=== PATIENT | female | born 1970 | race Caucasian/White ===

== ENCOUNTER 2022-06-06 18:48 | Emergency (ER) | payer OTHER, SELFPAY ==
[2022-06-06 19:16] VITALS: BP 115/80; PULSE 80; RESP 20; TEMP 36.9; O2SAT 96; BMI 19.4
[2022-06-06 19:33] LABS: Appearance Urine Clear (Clear); Bilirubin Urine Negative (Negative); Blood Urine 3+ (Negative); Color Urine Yellow (Yellow); Glucose Urine Negative (Negative); Ketones Urine Negative (Negative); Leukocyte Esterase Urine 2+ (Negative); Nitrite Urine Negative (Negative); Protein Urine Negative (Negative); Specific Gravity Urine >= 1.030 (1.000-1.030); Urobilinogen Urine 0.2 (0.2-1.0)
[2022-06-06 19:55] LABS: RBC Urine 50-100 (0-2); Squamous Epithelial Cell Urine Moderate (None-Few); WBC Urine 25-50 (0-5)
--- NOTE | 2022-06-06 20:10 | ED_ITS ---
HPI - Female Genitourinary General Chief complaint: Urogenital Problems, Female Stated complaint: UTI Time Seen by Provider: 06/06/22 20:08 History of Present Illness HPI Narrative: The 2-year-old female comes in with dysuria symptoms that began today. It has pain with voiding urine. She has increased frequency. She states that in the past 6 months she has had 3 other urinary tract is in prior to this had not any for about 20 years. She states that she recently traveled in did not urinate is frequently which may have predisposed an infection. Related Data Previous Rx's Medication Instructions Recorded cephalexin 500 mg capsule 500 mg PO TID 10 days #30 caps 06/06/22 Review of Systems Status of ROS: Reports: 10 or more systems reviewed and unremarkable except as noted in History and below Narrative: Constitutional: No fevers, no weight gain or loss. Eyes: No discharge. No vision changes. HENT: No congestion, no sore throat, no ear pain. Cardiovascular: No chest pain, no palpitations. Respiratory: No shortness of breath, no wheezes, no cough. Gastrointestinal: No abdominal pain, no vomiting, no diarrhea. Genitourinary: Dysuria symptoms as described above. Musculoskeletal: Normal range of motion. Skin: No rashes, no pruritis. Neurological: No dizziness, weakness, sensory change, speech change. Endo/Heme/Allergies: No bruising or bleeding. No polydipsia. Pysch: no suicidality, no anxiety, no insomnia. All other systems reviewed and are negative. PFSH PFSH Social History Smoking Status: Never smoker Do you use any of these nicotine containing products: None Second hand tobacco smoke exposure: No How often do you have a drink containing alcohol: 2-3 times a week How many standard drinks containing alcohol do you have on a typical day: 1 or 2 How often do you have six or more drinks on one occasion: Never AUDIT-C Alcohol total score: 3 Non-prescribed substance use: denies use service: No Exam Narrative: Exam Narrative: Constitutional: Well-developed, well-nourished, no acute distress. HEENT: Normocephalic, atraumatic. Neck: Normal range of motion. Nontender. Supple. Heart: Intact distal pulses. Lungs: No chest discomfort. No wheezes, rhonchi, or rales. Abdomen: Tenderness in the lower abdomen. Back: Normal range of motion. Extremities: Normal range of motion. No injury. Skin: Intact. No rash. Warm. No erythema or pallor. Neurologic: No altered sensation. No weakness. Alert and oriented. Psychiatric: No suicidality. No anxiety or depression. No insomnia. Nursing notes and vitals signs are reviewed. Const: Vital Signs, click to edit/add: Vital Signs - 24 hr 06/06/22 19:16 Temperature 98.4 F Pulse Rate [Femora l] 80 Respiratory Rate 20 Blood Pressure [Le ft Upper Arm] 115/80 Pulse Oximetry 96 Oxygen Delivery Me thod Room Air Course Vital Signs Vital signs: Initial Vital Signs Temperature 98.4 F 06/06/22 19:16 Temperature Source Temporal Artery Scan 06/06/22 19:16 Pulse Rate 80 06/06/22 19:16 Pulse Rhythm 06/06/22 19:16 Respiratory Rate 20 06/06/22 19:16 Blood Pressure 115/80 06/06/22 19:16 Blood Pressure Mean 91 06/06/22 19:16 Blood Pressure Position Supine 06/06/22 19:16 Pulse Oximetry 96 06/06/22 19:16 Oxygen Delivery Method 06/06/22 19:16 Vital Signs Temperature 98.4 F 06/06/22 19:16 Pulse Rate 80 06/06/22 19:16 Respiratory Rate 20 06/06/22 19:16 Blood Pressure 115/80 06/06/22 19:16 Pulse Oximetry 96 06/06/22 19:16 Oxygen Delivery Method 06/06/22 19:16 Temperature 98.4 F 06/06/22 19:16 Pulse Rate 80 06/06/22 19:16 Respiratory Rate 20 06/06/22 19:16 Blood Pressure 115/80 06/06/22 19:16 Pulse Oximetry 96 06/06/22 19:16 Oxygen Delivery Method 06/06/22 19:16 MDM - Female Genitourinary MDM Narrative Medical decision making narrative: This patient comes in with dysuria symptoms and has a urinary tract infection. She received a tablet of peridium prescription for Keflex. I advised her to follow-up with her primary physician to consider prophylactic treatment for these recurrent infections recently. Lab Data Labs: Lab Results 06/06/22 Range/Units 19:14 Urine Color Yellow (Yellow) Urine Appearance Clear (Clear) Urine pH 5.0 (5.0-8.5) Ur Specific [place] >= 1.030 (1.000-1.030) Urine Protein Negative (Negative) Urine Glucose (UA) Negative (Negative) Urine Ketones Negative (Negative) Urine Blood 3+ A (Negative) Urine Nitrite Negative (Negative) Urine Bilirubin Negative (Negative) Urine Urobilinogen 0.2 (0.2-1.0) Ur Leukocyte Esterase 2+ A (Negative) Urine RBC 50-100 A (0-2) Urine WBC 25-50 A (0-5) Ur Squamous Epith Cells Moderate A (None-Few) Urine Bacteria None (None) Discharge Plan Discharge Clinical Impression: Urinary tract infection Patient Disposition: Home, Self-Care Condition: Stable Additional Instructions: Take medication as prescribed. Follow up with primary physician or return if wo rsening. Prescriptions: New cephalexin 500 mg capsule 500 mg PO TID 10 Days Qty: 30 0RF Follow Up/Referrals: Provider,Not a Local [Primary Care Provider] - Stand Alone Forms: [employer] Info Instructions
[2022-06-06] MEDS: PHENAZOPYRIDINE HCL 200 MG TABLET PO (20:16)
[2022-06-06 20:18] VITALS: BP 115/80; PULSE 80; RESP 20; TEMP 36.9
--- OUTSIDE RECORDS SUMMARY | 2022-06-06 20:46 | XMS_ITS | Continuity of Care Document ---
:1970 Author Organization [employer] [facility] [place] [address] Care Team Providers Name Role Phone Rad Santiago MD Primary Care Provider [phone] Encounters Date Type Specialty Care Team Description 05/29/2022 Travel 05/29/2022 Orders Only Lab, [facility] 05/22/2022 Travel 05/22/2022 Procedure Only Ayah Layton, IUD DO 2022 Telephone Ayah Layton Appointme nt DO 05/08/2022 Travel 05/08/2022 Office Visit Ayah Layton, ER Follow up ([facility]rg[facility] DO room- [facility]) 05/07/2022 Emergency MedRupali londono PA-C Urinary tract infection with hematuria, site unspecified (Primary Dx); Mass of right t high 04/22/2022 Travel 04/22/2022 Office Visit Marko Cunningham MBBS 01/31/2022 Patient Outreach Jaymie Casillas Medicati on Management Allied Health (CMR NO SHOW R /S) 01/15/2022 Pharmacist Medication Lili Casillas , Failed Appointment Management PharmD 01/01/2022 Refill Ryann Hogan Refill R equest MD (Albuterol Hfa) 10/04/2021 Travel 10/04/2021 Ancillary Procedure 10/01/2021 Travel 09/18/2021 Refill Angie Boss Refill R khris Candelario NP (Flovent Hfa) 09/13/2021 Refill Ina Santana Refill Gianna Restrepo DO (Levothyroxine) 08/30/2021 Refill Rad Santiago MD 08/30/2021 Office Visit Rad Santiago Physical (p andriy Chacko MD concern about e ye redness, using OTC drops (LUMIFY) concern what ca n be, since possible related to thyr oid.') 08/29/2021 Travel 07/18/2021 Travel 07/17/2021 Telephone [facility] 07/12/2021 Travel 07/12/2021 Nurse/Clinic Staff Only Immu nization/Injectio n (COVID-19 vac cine) 06/21/2021 Orders Only Kaye Andrade MD <No scans attached> 05/29/2021 Refill Ina Santana Refill Gianna Restrepo DO (Levothyroxine) 04/05/2021 Travel 04/05/2021 Office Visit Ina Santana Derm Problem (lindsey Restrepo DO on arms ) 02/21/2021 Travel 02/21/2021 Hospital Encounter Rad Santiago right Lee, MD 02/16/2021 Travel 02/12/2021 Travel 02/12/2021 Office Visit Rad Santiago MD 02/09/2021 Refill Angie Boss Refill R khris Candelario NP (Ventolin Hfa) 01/30/2021 Travel 01/30/2021 Office Visit Ryann Hogan Asthma ( refills) 01/24/2021 Travel 01/01/2021 Refill Angie Boss Refill R khris Candelario NP (Albuterol) 08/16/2020 Orders Only Angie Boss <No scan s attached> OKSANA Candelario 08/11/2020 Orders Only Lab, [facility] 08/10/2020 Travel 08/10/2020 Office Visit Angie Boss Asthma OKSANA Candelario 08/08/2020 Travel 07/17/2020 Refill Rad Santiago MD (flovent inhale r; ventolin inhale r) 07/14/2020 Telephone Sabine Preston MD 07/13/2020 Hospital Encounter Ina Santana Abnorma l mammogram Kaye, DO 06/30/2020 Travel 06/30/2020 Hospital Encounter Ina Santana Abnormtrish l mammogram Kaye, DO 06/23/2020 Travel 06/22/2020 Travel 06/19/2020 Hospital Encounter Breast ca ncer screening by mammogram 06/13/2020 Travel 06/13/2020 Office Visit Teodoro Cool, Consult (right upper MD arm mass) 06/02/2020 Travel 06/02/2020 Office Visit Latha Romero Consult (Mary Albert MD uterine bleedin g) 05/16/2020 Travel 05/16/2020 Hospital Encounter Ina Santana Menorrh agia with irregular cycle; Kaye, DO Arm mass, right 05/09/2020 Travel 05/09/2020 Office Visit Ina Santana Physical; Flu Shot Kaye, DO 04/28/2020 Travel 04/27/2020 Refill Rad Santiago MD (levothyroxine) 04/25/2020 Travel 03/24/2020 Travel 03/21/2020 Refill Rad Santiago MD (Albuterol Hfa) ; Physical (OV Du e with PCP); Asthma (O V Due with PCP) 12/17/[address] [facility]; Trmt PhD, LP Plan 12/03/[address] [facility]; Mental PhD, LP Health Intake 11/30/2019 Telephone David Melton, PhD, Appointm ent LP 11/30/2019 Telemedicine David Melton, PhD, Failed A ppointment LP 10/25/2019 Refill Rad Santiago MD (Ventolin Hfa) 10/17/2019 Refill Rad Santiago MD (Albuterol Hfa) 07/05/2019 Orders Only Lab, [facility] 06/28/2019 Refill Rad Santiago MD (Flovent HFA ) 06/02/2019 Refill Rad Santiago MD (Levothyroxine) 06/02/2019 Orders Only Rad Santiago <No scans a ttached> MD [facility] 06/01/2019 Travel 06/01/2019 Orders Only Lab, [facility] 05/18/2019 Telephone Rad Santiago Lab (FYI) MD [facility] 05/17/2019 Telephone Rad Santiago Lab (TSH an d IFOB) MD [facility] 03/01/2019 Travel 03/01/2019 Office Visit Rad Santiago Physical; M edication MD [facility] Management 12/05/2017 Orders Only Scanner <No scans attac hed> 03/06/2006 Orders Only Ross Contreras, <No sca ns attached> 03/05/2006 Office Visit Ross Contreras, Vaginal Problem (vag MD lump) 07/20/2002 [facility] Office Visit Ross Contreras MD 07/13/2002 [facility] Office Visit Jai Kapadia MD 06/29/2002 [facility] Office Visit Jai Kapadia MD 06/14/2002 [facility] Office Visit Angie Hardin, 06/01/2002 [facility] Office Visit Ross Contreras MD 05/18/2002 [facility] Office Visit Jai Kapadia MD 04/20/2002 [facility] Office Visit Sonia Olson NP 04/01/2002 [facility] Office Visit Jai Kapadia MD 02/23/2002 [facility] Office Visit Jai Kapadia MD 01/14/2002 [facility] Office Visit Ross Contreras MD 01/14/2002 [facility] Office Visit Staff, Other Clinical 12/29/2001 [facility] Office Visit Sonia Olson NP 10/13/2000 [facility] Office Visit Edmar Klein MD 09/01/2000 [facility] Office Visit Linh Uribe NP 08/22/2000 [facility] Office Visit Jai Kapadia MD 08/14/2000 [facility] Office Visit Jai Kapadia MD 08/05/2000 [facility] Office Visit Edmar Klein MD 07/29/2000 [facility] Office Visit Edmar Klein MD 07/15/2000 [facility] Office Visit Taylor Keenan NP 06/27/2000 [facility] Office Visit Linh Uribe NP 05/30/2000 [facility] Office Visit Taylor Keenan NP 05/02/2000 [facility] Office Visit Linh Uribe NP 05/02/2000 [facility] Office Procedure Jai Kapadia MD 04/04/2000 [facility] Office Visit Jai Kapadia MD 03/05/2000 [facility] Office Procedure Edmar Klein MD 03/05/2000 [facility] Office Visit Edmar Klein MD 02/22/2000 [facility] Office Visit Taylor Keenan NP 02/22/2000 [facility] Office Procedure Jai Kapadia MD 02/18/2000 [facility] Office Visit Linh Uribe NP Allergies No known active allergies Medications Medication Sig Dispensed Refills Start Date End Date Status fluticasone (50 Inhale 1-2 1 Bottle 12 08/10/2020 Ac tive mcg per actuation) Sprays in the nasal solution nostril(s) (FLONASE)Indicatio once daily. ns: Sinus congestion levothyroxine Take 1 Tablet 90 Tablet 3 08/30/2021 A ctive (SYNTHROID) 112 (112 mcg) by mcg mouth once tabletIndications: daily. Hypothyroidism, unspecified type Flovent HFA 220 INHALE 2 PUFFS 36 g 0 09/20/2021 Active mcg/actuation BY MOUTH TWICE inhalerIndications DAILY : Mild persistent asthma without complication albuterol HFA Inhale 2 Puffs 18 g 3 01/03/2022 Active (PRO-AIR; by mouth every VENTOLIN; 4 hours if PROVENTIL) 90 needed (cough, mcg/actuation shortness of inhalerIndications breath, or : Mild persistent wheezing). asthma without complication Cranberry Extract Take by mouth. 0 Active 200 mg cap flaxseed oil 1,000 Take 1 Cap by 0 0 Discontinued mg cap mouth once 22 (*Patient states daily. no longer taking/Not on sending fa cility list) [id number]- Take by mouth. 0 08/30/202105/08 Discontinued FA-lutein (Centrum 22 ( *Patient states Silver Women) 8 mg n o longer iron-400 mcg-300 lizz ing/Not on mcg tab sending fa cility list) cefdinir (OMNICEF) Take 1 Capsule 14 Capsule 0 05/07/2022 10/0 4/20 300 mg (300 mg) by 22 capsuleIndications mouth two : Urinary tract times daily infection with for 7 days. hematuria, site unspecified Hospital, Clinic, or Other Ordered Dose Route Frequency Start Date End Date Status Facility Administered Medication levonorgestrel (MIRENA) 20 1 Device IU ONE TIME 05/22/2022 Ended mcg/24 hours (8 yrs) 52 mg intrauterine device (IUD) 1 DeviceIndications: Encounter for IUD insertion Active Problems Problem Noted Date Intramural uterine fibroid 06/02/2020 Endometrial polyp 06/02/2020 Abnormal uterine bleeding 06/02/2020 PMS (premenstrual syndrome) 06/02/2020 Hypothyroidism 06/02/2019 Mild persistent asthma without complication Immunizations Name Administration Dates Next Due COVID-19 vaccine (Moderna 10/05/2020, 09/07/2020 100mcg/0.5mL) PF, MDV COVID-19 vaccine (Moderna Booster 07/12/2021 50mcg/0.25mL) PF, MDV COVID-19 vaccine (Blogvio 05/08/2022 30mcg/0.3mL) 12YO+ BIVALENT BOOSTER PF, MDV Influenza Virus, Unspecified 05/19/2012, 08/01/2011 Influenza, IIV4 05/08/2022, 07/12/2021, 05/09/2020, 07/21/2018 Pneumococcal Conj 20-valent (Prevnar 05/08/2022 20) Pneumococcal Poly,23-Valent 07/13/2008 (Pneumovax) Td (Age >=7 Years) 05/08/2022, 08/11/1992 Td, Preservative Free (age >= 7 02/20/2006 Years) Tdap 05/19/2012 Zoster (Shingrix-RZV, recombinant) 12/04/2020, 08/10/2020 Family History Medical History Relation Name Comments Good Health Daughter Jett Oldest Asthma Father Cancer-colon Father Depression Father Diabetes Father Gout Father Hypertension Father Stroke Father Asthma Mother Good Health Sister Younger by 3 yea rs Good Health Son 1 Danial Second Good Health Son 2 Juan Diego Third Cancer-breast No Family History Cancer-ovarian No Family History Relation Name Status Comments Daughter Jett Alive Father Alive Mother Alive Sister Alive Son 1 Danial Alive Son 2 Juan Diego Alive Social History Smoking Status as of 06/06/2022 Tobacco Use Types Packs/Day Years Used Date Never Assessed Alcohol Habits Answer Date Recorded How often do you have a drink containing alcohol? 2-3 times a week 03/01/2019 How many drinks containing alcohol do you have on a 1 or 2 03/01/2019 typical day when you are drinking? How often do you have six or more drinks on one Never 03/01/2019 occasion? Comment: occasionally 01/30/2021 Sex Assigned at Date Recorded Female 03/24/2020 4:14 PM CDT COVID-19 Exposure Response Date Recorded In the last 10 days, have you been in contact with No / Unsu re 05/29/2022 4:40 PM CDT someone who was confirmed or suspected to have Coronavirus/COVID-19? Last Filed Vital Signs Vital Sign Reading Time Taken Comments Blood Pressure 143/86 05/22/2022 2:45 PM CDT Pulse 66 05/22/2022 2:45 PM CDT Temperature 36.9 ??C (98.4 ??F) 05/07/2022 2:27 PM CDT Respiratory Rate 14 05/08/2022 11:52 AM CDT Oxygen Saturation 100% 05/07/2022 2:27 PM CDT Inhaled Oxygen Concentration - - Weight 60.3 kg (133 lb) 05/22/2022 2:41 PM CDT Height 178.5 cm (5' 10.28) 08/30/2021 4:20 PM PROPERTY FIELD INSPECTOR Body Mass Index 18.93 08/30/2021 4:20 PM PROPERTY FIELD INSPECTOR Plan of Treatment Not on file Procedures Procedure Name Priority Date/Time Associated Diagnosis Comme nts URINE Routine 05/29/2022 4:47 Encounter for IUD Resu lts for this PM CDT insertion procedure are i n the results section. OH INSERTION Routine 05/22/2022 3:10 Encounter for IUD Results for this INTRAUTERINE DEVICE PM CDT insertion procedur e are in IUD the results section. URINE Routine 05/22/2022 2:41 Encounter for IUD Resu lts for this PM CDT insertion procedure are i n the results section. US LOWER EXTREMITY STAT 05/07/2022 3:24 Result s for this SOFT TISSUE RIGHT PM CDT procedure are in the results section. URINE CULTURE STAT 05/07/2022 3:06 Results for this PM CDT procedure are i n the results section. URINALYSIS STAT 05/07/2022 3:06 Results for this MICROSCOPIC PM CDT procedure are i n the results section. UA W/ SEDIMENT EXAM STAT 05/07/2022 3:06 Resul ts for this REFLEXED PER CRITERIA PM CDT proced ure are in the results section. WET PREP GENITAL STAT 05/07/2022 3:03 Results for this PM CDT procedure are i n the results section. GC CHLAMYDIA TRACH STAT 05/07/2022 3:03 Result s for this PCR EPPA PM CDT procedure are i n the results section. URINE CULTURE Add On 04/22/2022 4:51 Bacterial UTI Results fo r this PM CDT procedure are i n the results section. URINALYSIS STAT 04/22/2022 4:51 Urinary frequency Results for this MICROSCOPIC PM CDT procedure are i n the results section. UA W/ SEDIMENT EXAM STAT 04/22/2022 4:51 Urinary frequency Results for this REFLEXED PER CRITERIA PM CDT proced ure are in the results section. XR MAMMO JANIS BILAT Routine 10/04/2021 4:36 Visit for screenin g Results for this SCREEN IMPLANT PM PROPERTY FIELD INSPECTOR mammogram procedure are in the results section. TSH Routine 08/30/2021 5:19 Acquired Results for this PM PROPERTY FIELD INSPECTOR hypothyroidism procedure are in the results section. SCAN-COLONOSCOPY 06/21/2021 1:30 Results for this PM PROPERTY FIELD INSPECTOR procedure are i n the results section. CBC W PLT NO DIFF Routine 04/05/2021 10:51 Petechiae Result s for this AM CDT procedure are i n the results section. US BREAST UNILATERAL DARCI 02/21/2021 9:22 Breast mass, righ t Results for this RIGHT LIMITED AM CDT procedure are in the results section. XR MAMMO JANIS UNI DARCI 02/21/2021 9:01 Breast mass, right R esults for this DIAG IMPLANT RIGHT AM CDT procedure are in the results section. OCCULT BLOOD IFOBT Routine 08/11/2020 11:24 Screening for colo n Results for this STOOL AM PROPERTY FIELD INSPECTOR cancer procedure are i n the results section. XR MAMMO POST CLIP STAT 07/13/2020 10:48 Abnormal mammogram Results for this PLCMT BILAT AM PROPERTY FIELD INSPECTOR procedure are i n the results section. US BIOPSY BREAST STAT 07/13/2020 10:33 Abnormal mammogram R esults for this NEEDLE W TEODORO W GUIDE AM PROPERTY FIELD INSPECTOR proced ure are in LEFT the results section. US BIOPSY BREAST STAT 07/13/2020 10:31 Abnormal mammogram R esults for this NEEDLE W TEODORO W GUIDE AM PROPERTY FIELD INSPECTOR proced ure are in RIGHT the results section. PATH TISSUE EXAM Today 07/13/2020 9:50 Results for this AM PROPERTY FIELD INSPECTOR procedure are i n the results section. US BREAST BILATERAL Routine 06/30/2020 8:12 Abnormal mammogram Results for this LIMITED AM PROPERTY FIELD INSPECTOR procedure are i n the results section. XR MAMMO JANIS BILAT Routine 06/30/2020 7:52 Abnormal mammogram Results for this ADDL VIEWS IMPLANT AM PROPERTY FIELD INSPECTOR procedure are in the results section. XR MAMMO JANIS BILAT Routine 06/19/2020 3:14 Breast cancer Resu lts for this SCREEN IMPLANT PM PROPERTY FIELD INSPECTOR screening by mammogram pro cedure are in the results section. US UPPER EXTREMITY Routine 05/16/2020 4:04 Arm mass, right Res ults for this SOFT TISSUE RIGHT PM CDT procedure are in the results section. US PELVIS COMPLETE TA Routine 05/16/2020 4:04 Menorrhagia with Results for this AND TV PM CDT irregular cycle procedure ar e in the results section. TSH Routine 05/09/2020 4:27 Hypothyroidism, Results f or this PM CDT unspecified type procedure a re in the results section. CBC W PLT NO DIFF Routine 05/09/2020 4:27 Menorrhagia with Res ults for this PM CDT irregular cycle procedure ar e in the results section. HEMOGLOBIN A1C Routine 05/09/2020 4:27 Screening for diabetes Results for this SCREENING PM CDT mellitus procedure are i n the results section. LIPID PANEL Routine 05/09/2020 4:27 Screening for lipid Resul ts for this PM CDT disorders procedure are i n the results section. OCCULT BLOOD IFOBT Routine 07/03/2019 9:08 Screening for colon Results for this STOOL AM PROPERTY FIELD INSPECTOR cancer procedure are i n the results section. TSH Routine 06/01/2019 3:53 Hypothyroidism, Results f or this PM CDT unspecified type procedure a re in the results section. GLUCOSE, FASTING Routine 03/01/2019 5:09 Diabetes mellitus Res ults for this PM CDT screening procedure are i n the results section. LIPID PANEL W REFLEX Routine 03/01/2019 5:09 Lipid screening R esults for this MEASURED LDL PM CDT procedure are i n the results section. [employer] ANALYST THIN PREP PAP Routine 03/01/2019 4:55 Cervical cancer Resu lts for this SCREEN IMAGED PM CDT screening procedure are in the results section. HPV THIN PREP Routine 03/01/2019 4:55 Cervical cancer Results for this PM CDT screening procedure are i n the results section. SCAN-MAMMOGRAPHY 12/05/2017 12:00 Results for this REPORT AM CDT procedure are i n the results section. PATH TISSUE EXAM Timed 03/05/2006 9:53 Results for this AM CDT procedure are i n the results section. GLUCOSE QUALITATIVE Routine 07/20/2002 2:05 Resul ts for this URINE PM PROPERTY FIELD INSPECTOR procedure are i n the results section. PROTEIN QUALITATIVE Routine 07/20/2002 2:05 Resul ts for this URINE PM PROPERTY FIELD INSPECTOR procedure are i n the results section. GESTATIONAL AGE Routine 07/20/2002 2:05 Results f or this ESTIMATE PM PROPERTY FIELD INSPECTOR procedure are i n the results section. VAG RECTAL OB STREP Routine 07/13/2002 3:55 Resul ts for this CULT PM PROPERTY FIELD INSPECTOR procedure are i n the results section. GLUCOSE QUALITATIVE Routine 07/13/2002 1:12 Resul ts for this URINE PM PROPERTY FIELD INSPECTOR procedure are i n the results section. PROTEIN QUALITATIVE Routine 07/13/2002 1:12 Resul ts for this URINE PM PROPERTY FIELD INSPECTOR procedure are i n the results section. HEMOGLOBIN Routine 07/13/2002 1:12 Results for this PM PROPERTY FIELD INSPECTOR procedure are i n the results section. GESTATIONAL AGE Routine 07/13/2002 1:12 Results f or this ESTIMATE PM PROPERTY FIELD INSPECTOR procedure are i n the results section. GLUCOSE QUALITATIVE Routine 06/29/2002 10:09 Resu lts for this URINE AM PROPERTY FIELD INSPECTOR procedure are i n the results section. PROTEIN QUALITATIVE Routine 06/29/2002 10:09 Resu lts for this URINE AM PROPERTY FIELD INSPECTOR procedure are i n the results section. GESTATIONAL AGE Routine 06/29/2002 10:09 Results for this ESTIMATE AM PROPERTY FIELD INSPECTOR procedure are i n the results section. GLUCOSE QUALITATIVE Routine 06/14/2002 10:14 Resu lts for this URINE AM PROPERTY FIELD INSPECTOR procedure are i n the results section. PROTEIN QUALITATIVE Routine 06/14/2002 10:14 Resu lts for this URINE AM PROPERTY FIELD INSPECTOR procedure are i n the results section. GESTATIONAL AGE Routine 06/14/2002 10:14 Results for this ESTIMATE AM PROPERTY FIELD INSPECTOR procedure are i n the results section. GLUCOSE QUALITATIVE Routine 06/01/2002 9:42 Resul ts for this URINE AM CDT procedure are i n the results section. PROTEIN QUALITATIVE Routine 06/01/2002 9:42 Resul ts for this URINE AM CDT procedure are i n the results section. GESTATIONAL AGE Routine 06/01/2002 9:42 Results f or this ESTIMATE AM CDT procedure are i n the results section. GLUCOSE QUALITATIVE Routine 05/18/2002 10:02 Resu lts for this URINE AM CDT procedure are i n the results section. PROTEIN QUALITATIVE Routine 05/18/2002 10:02 Resu lts for this URINE AM CDT procedure are i n the results section. HEMOGLOBIN Routine 05/18/2002 10:02 Results for this AM CDT procedure are i n the results section. GLUCOSE BLOOD 1 HOUR Routine 05/18/2002 10:02 Res ults for this AFTER 50 GM ORAL AM CDT procedure a re in GLUCOSE the results section. GESTATIONAL AGE Routine 05/18/2002 10:02 Results for this ESTIMATE AM CDT procedure are i n the results section. GLUCOSE QUALITATIVE Routine 04/20/2002 10:27 Resu lts for this URINE AM CDT procedure are i n the results section. PROTEIN QUALITATIVE Routine 04/20/2002 10:27 Resu lts for this URINE AM CDT procedure are i n the results section. GESTATIONAL AGE Routine 04/20/2002 10:27 Results for this ESTIMATE AM CDT procedure are i n the results section. GLUCOSE QUALITATIVE Routine 04/01/2002 3:05 Resul ts for this URINE PM CDT procedure are i n the results section. PROTEIN QUALITATIVE Routine 04/01/2002 3:05 Resul ts for this URINE PM CDT procedure are i n the results section. GESTATIONAL AGE Routine 04/01/2002 3:05 Results f or this ESTIMATE PM CDT procedure are i n the results section. GLUCOSE QUALITATIVE Routine 02/23/2002 9:14 Resul ts for this URINE AM CDT procedure are i n the results section. TRIPLE MARKER SCREEN Routine 02/23/2002 9:14 Resu lts for this FOR DOWN SYNDROME AM CDT procedure are in MATERNAL SERUM the results section. PROTEIN QUALITATIVE Routine 02/23/2002 9:14 Resul ts for this URINE AM CDT procedure are i n the results section. GESTATIONAL AGE Routine 02/23/2002 9:14 Results f or this ESTIMATE AM CDT procedure are i n the results section. PROTEIN QUALITATIVE Routine 01/14/2002 1:46 Resul ts for this URINE PM CDT procedure are i n the results section. HEMOGLOBIN Routine 01/14/2002 1:46 Results for this PM CDT procedure are i n the results section. GLUCOSE QUALITATIVE Routine 01/14/2002 1:46 Resul ts for this URINE PM CDT procedure are i n the results section. GESTATIONAL AGE Routine 01/14/2002 1:46 Results f or this ESTIMATE PM CDT procedure are i n the results section. TRIPLE MARKER SCREEN Routine 01/14/2002 11:00 Res ults for this FOR DOWN SYNDROME AM CDT procedure are in MATERNAL SERUM the results section. GESTATIONAL AGE Routine 01/14/2002 11:00 Results for this ESTIMATE AM CDT procedure are i n the results section. NUTRITION EDUCATION Routine 01/14/2002 11:00 Resu lts for this AM CDT procedure are i n the results section. WHITE BLOOD COUNT Routine 12/29/2001 10:50 Result s for this AM CDT procedure are i n the results section. RBC SIZE DISTRIBUTION Routine 12/29/2001 10:50 Re sults for this AM CDT procedure are i n the results section. RED BLOOD COUNT Routine 12/29/2001 10:50 Results for this AM CDT procedure are i n the results section. SEGMENTED NEUTROPHILS Routine 12/29/2001 10:50 Re sults for this PERCENT OF BLOOD AM CDT procedur e are in LEUKOCYTES the results section. PLATELET COUNT Routine 12/29/2001 10:50 Results f or this AM CDT procedure are i n the results section. NEUTROPHIL COUNT Routine 12/29/2001 10:50 Results for this BLOOD MANUAL AM CDT procedure are i n the results section. MEAN PLATELET VOLUME Routine 12/29/2001 10:50 Res ults for this AM CDT procedure are i n the results section. MONOCYTE COUNT BLOOD Routine 12/29/2001 10:50 Res ults for this AUTOMATED AM CDT procedure are i n the results section. MONOCYTES PERCENT Routine 12/29/2001 10:50 Res ults for this OF BLOOD LEUKOCYTES AM CDT procedur e are in MANUAL COUNT the results section. MEAN CORPUSCULAR Routine 12/29/2001 10:50 Results for this VOLUME RBC AM CDT procedure are i n the results section. MEAN CORPUSCULAR Routine 12/29/2001 10:50 Results for this HEMOGLOBIN AM CDT procedure are i n CONCENTRATION RBC the result s section. MEAN CORPUSLE HGB Routine 12/29/2001 10:50 Result s for this COUNT AM CDT procedure are i n the results section. LYMPHOCYTE COUNT Routine 12/29/2001 10:50 Results for this BLOOD AM CDT procedure are i n the results section. LYMPHOCYTES Routine 12/29/2001 10:50 Results f or this PERCENT OF BLOOD AM CDT procedure a re in LEUKOCYTES MANUAL the result s COUNT section. HEMOGLOBIN Routine 12/29/2001 10:50 Results for this AM CDT procedure are i n the results section. HEMATOCRIT Routine 12/29/2001 10:50 Results for this AM CDT procedure are i n the results section. EOSINOPHILS Routine 12/29/2001 10:50 Results f or this PERCENT OF BLOOD AM CDT procedure a re in LEUKOCYTES the results section. EOSINOPHIL COUNT Routine 12/29/2001 10:50 Results for this BLOOD AM CDT procedure are i n the results section. BASOPHILS PERCENT Routine 12/29/2001 10:50 Res ults for this OF BLOOD LEUKOCYTES AM CDT procedur e are in the results section. BASOPHIL COUNT BLOOD Routine 12/29/2001 10:50 Res ults for this AM CDT procedure are i n the results section. HBSAG (HBS) Routine 12/29/2001 10:50 Results for this AM CDT procedure are i n the results section. GESTATIONAL AGE Routine 12/29/2001 10:43 Results for this ESTIMATE AM CDT procedure are i n the results section. HPV THIN PREP Routine 10/13/2000 1:08 Results for this PM PROPERTY FIELD INSPECTOR procedure are i n the results section. HEMOGLOBIN Routine 10/13/2000 10:03 Results for this AM PROPERTY FIELD INSPECTOR procedure are i n the results section. LEUKOCYTE ESTERASE Routine 09/01/2000 7:24 Result s for this URINE BY DIPSTICK AM PROPERTY FIELD INSPECTOR procedure are in the results section. PROTEIN QUALITATIVE Routine 09/01/2000 7:24 Resul ts for this URINE AM PROPERTY FIELD INSPECTOR procedure are i n the results section. GLUCOSE QUALITATIVE Routine 09/01/2000 7:24 Resul ts for this URINE AM PROPERTY FIELD INSPECTOR procedure are i n the results section. GESTATIONAL AGE Routine 09/01/2000 7:24 Results f or this ESTIMATE AM PROPERTY FIELD INSPECTOR procedure are i n the results section. LEUKOCYTE ESTERASE Routine 08/22/2000 4:07 Result s for this URINE BY DIPSTICK PM PROPERTY FIELD INSPECTOR procedure are in the results section. PROTEIN QUALITATIVE Routine 08/22/2000 4:07 Resul ts for this URINE PM PROPERTY FIELD INSPECTOR procedure are i n the results section. GLUCOSE QUALITATIVE Routine 08/22/2000 4:07 Resul ts for this URINE PM PROPERTY FIELD INSPECTOR procedure are i n the results section. GESTATIONAL AGE Routine 08/22/2000 4:07 Results f or this ESTIMATE PM PROPERTY FIELD INSPECTOR procedure are i n the results section. VAG RECTAL OB STREP Routine 08/14/2000 2:15 Resul ts for this CULT PM PROPERTY FIELD INSPECTOR procedure are i n the results section. LEUKOCYTE ESTERASE Routine 08/14/2000 1:55 Result s for this URINE BY DIPSTICK PM PROPERTY FIELD INSPECTOR procedure are in the results section. PROTEIN QUALITATIVE Routine 08/14/2000 1:55 Resul ts for this URINE PM PROPERTY FIELD INSPECTOR procedure are i n the results section. GLUCOSE QUALITATIVE Routine 08/14/2000 1:55 Resul ts for this URINE PM PROPERTY FIELD INSPECTOR procedure are i n the results section. GESTATIONAL AGE Routine 08/14/2000 1:55 Results f or this ESTIMATE PM PROPERTY FIELD INSPECTOR procedure are i n the results section. LEUKOCYTE ESTERASE Routine 08/05/2000 3:26 Result s for this URINE BY DIPSTICK PM PROPERTY FIELD INSPECTOR procedure are in the results section. PROTEIN QUALITATIVE Routine 08/05/2000 3:26 Resul ts for this URINE PM PROPERTY FIELD INSPECTOR procedure are i n the results section. GLUCOSE QUALITATIVE Routine 08/05/2000 3:26 Resul ts for this URINE PM PROPERTY FIELD INSPECTOR procedure are i n the results section. GESTATIONAL AGE Routine 08/05/2000 3:26 Results f or this ESTIMATE PM PROPERTY FIELD INSPECTOR procedure are i n the results section. LEUKOCYTE ESTERASE Routine 07/29/2000 9:01 Result s for this URINE BY DIPSTICK AM PROPERTY FIELD INSPECTOR procedure are in the results section. PROTEIN QUALITATIVE Routine 07/29/2000 9:01 Resul ts for this URINE AM PROPERTY FIELD INSPECTOR procedure are i n the results section. GLUCOSE QUALITATIVE Routine 07/29/2000 9:01 Resul ts for this URINE AM PROPERTY FIELD INSPECTOR procedure are i n the results section. GESTATIONAL AGE Routine 07/29/2000 9:01 Results f or this ESTIMATE AM PROPERTY FIELD INSPECTOR procedure are i n the results section. LEUKOCYTE ESTERASE Routine 07/15/2000 1:37 Result s for this URINE BY DIPSTICK PM PROPERTY FIELD INSPECTOR procedure are in the results section. PROTEIN QUALITATIVE Routine 07/15/2000 1:37 Resul ts for this URINE PM PROPERTY FIELD INSPECTOR procedure are i n the results section. GLUCOSE QUALITATIVE Routine 07/15/2000 1:37 Resul ts for this URINE PM PROPERTY FIELD INSPECTOR procedure are i n the results section. GESTATIONAL AGE Routine 07/15/2000 1:37 Results f or this ESTIMATE PM PROPERTY FIELD INSPECTOR procedure are i n the results section. LEUKOCYTE ESTERASE Routine 06/27/2000 3:50 Result s for this URINE BY DIPSTICK PM PROPERTY FIELD INSPECTOR procedure are in the results section. PROTEIN QUALITATIVE Routine 06/27/2000 3:50 Resul ts for this URINE PM PROPERTY FIELD INSPECTOR procedure are i n the results section. HEMOGLOBIN Routine 06/27/2000 3:50 Results for this PM PROPERTY FIELD INSPECTOR procedure are i n the results section. GLUCOSE BLOOD 1 HOUR Routine 06/27/2000 3:50 Resu lts for this AFTER 50 GM ORAL PM PROPERTY FIELD INSPECTOR procedure a re in GLUCOSE the results section. GLUCOSE QUALITATIVE Routine 06/27/2000 3:50 Resul ts for this URINE PM PROPERTY FIELD INSPECTOR procedure are i n the results section. GESTATIONAL AGE Routine 06/27/2000 3:50 Results f or this ESTIMATE PM PROPERTY FIELD INSPECTOR procedure are i n the results section. LEUKOCYTE ESTERASE Routine 05/30/2000 3:37 Result s for this URINE BY DIPSTICK PM CDT procedure are in the results section. PROTEIN QUALITATIVE Routine 05/30/2000 3:37 Resul ts for this URINE PM CDT procedure are i n the results section. GLUCOSE QUALITATIVE Routine 05/30/2000 3:37 Resul ts for this URINE PM CDT procedure are i n the results section. GESTATIONAL AGE Routine 05/30/2000 3:37 Results f or this ESTIMATE PM CDT procedure are i n the results section. LEUKOCYTE ESTERASE Routine 05/02/2000 2:24 Result s for this URINE BY DIPSTICK PM CDT procedure are in the results section. PROTEIN QUALITATIVE Routine 05/02/2000 2:24 Resul ts for this URINE PM CDT procedure are i n the results section. GLUCOSE QUALITATIVE Routine 05/02/2000 2:24 Resul ts for this URINE PM CDT procedure are i n the results section. GESTATIONAL AGE Routine 05/02/2000 2:24 Results f or this ESTIMATE PM CDT procedure are i n the results section. LEUKOCYTE ESTERASE Routine 04/04/2000 3:40 Result s for this URINE BY DIPSTICK PM CDT procedure are in the results section. PROTEIN QUALITATIVE Routine 04/04/2000 3:40 Resul ts for this URINE PM CDT procedure are i n the results section. HEMOGLOBIN Routine 04/04/2000 3:40 Results for this PM CDT procedure are i n the results section. GLUCOSE QUALITATIVE Routine 04/04/2000 3:40 Resul ts for this URINE PM CDT procedure are i n the results section. GESTATIONAL AGE Routine 04/04/2000 3:40 Results f or this ESTIMATE PM CDT procedure are i n the results section. LEUKOCYTE ESTERASE Routine 03/05/2000 3:36 Result s for this URINE BY DIPSTICK PM CDT procedure are in the results section. PROTEIN QUALITATIVE Routine 03/05/2000 3:36 Resul ts for this URINE PM CDT procedure are i n the results section. GLUCOSE QUALITATIVE Routine 03/05/2000 3:36 Resul ts for this URINE PM CDT procedure are i n the results section. GESTATIONAL AGE Routine 03/05/2000 3:36 Results f or this ESTIMATE PM CDT procedure are i n the results section. HPV THIN PREP Routine 03/05/2000 8:48 Results for this AM CDT procedure are i n the results section. NUTRITION EDUCATION Routine 02/22/2000 9:46 Resul ts for this AM CDT procedure are i n the results section. HBSAG (HBS) Routine 02/18/2000 8:00 Results for this AM CDT procedure are i n the results section. WHITE BLOOD COUNT Routine 02/18/2000 8:00 Results for this AM CDT procedure are i n the results section. RBC SIZE DISTRIBUTION Routine 02/18/2000 8:00 Res ults for this AM CDT procedure are i n the results section. RED BLOOD COUNT Routine 02/18/2000 8:00 Results f or this AM CDT procedure are i n the results section. SEGMENTED NEUTROPHILS Routine 02/18/2000 8:00 Res ults for this PERCENT OF BLOOD AM CDT procedur e are in LEUKOCYTES the results section. PLATELET COUNT Routine 02/18/2000 8:00 Results fo r this AM CDT procedure are i n the results section. NEUTROPHIL COUNT Routine 02/18/2000 8:00 Results for this BLOOD MANUAL AM CDT procedure are i n the results section. MEAN PLATELET VOLUME Routine 02/18/2000 8:00 Resu lts for this AM CDT procedure are i n the results section. MONOCYTE COUNT BLOOD Routine 02/18/2000 8:00 Resu lts for this AUTOMATED AM CDT procedure are i n the results section. MONOCYTES PERCENT Routine 02/18/2000 8:00 Resu lts for this OF BLOOD LEUKOCYTES AM CDT procedur e are in MANUAL COUNT the results section. MEAN CORPUSCULAR Routine 02/18/2000 8:00 Results for this VOLUME RBC AM CDT procedure are i n the results section. MEAN CORPUSCULAR Routine 02/18/2000 8:00 Results for this HEMOGLOBIN AM CDT procedure are i n CONCENTRATION RBC the result s section. MEAN CORPUSLE HGB Routine 02/18/2000 8:00 Results for this COUNT AM CDT procedure are i n the results section. LYMPHOCYTE COUNT Routine 02/18/2000 8:00 Results for this BLOOD AM CDT procedure are i n the results section. LYMPHOCYTES Routine 02/18/2000 8:00 Results fo r this PERCENT OF BLOOD AM CDT procedure a re in LEUKOCYTES MANUAL the result s COUNT section. HEMOGLOBIN Routine 02/18/2000 8:00 Results for this AM CDT procedure are i n the results section. HEMATOCRIT Routine 02/18/2000 8:00 Results for this AM CDT procedure are i n the results section. EOSINOPHILS Routine 02/18/2000 8:00 Results fo r this PERCENT OF BLOOD AM CDT procedure a re in LEUKOCYTES the results section. EOSINOPHIL COUNT Routine 02/18/2000 8:00 Results for this BLOOD AM CDT procedure are i n the results section. BASOPHILS PERCENT Routine 02/18/2000 8:00 Resu lts for this OF BLOOD LEUKOCYTES AM CDT procedur e are in the results section. BASOPHIL COUNT BLOOD Routine 02/18/2000 8:00 Resu lts for this AM CDT procedure are i n the results section. HPV THIN PREP Routine 04/09/1999 10:18 Results fo r this AM CDT procedure are i n the results section. HEMOGLOBIN Routine 04/09/1999 10:18 Results for this AM CDT procedure are i n the results section. Results URINE (05/29/2022 4:47 PM CDT)Only the most recent of2 resultswithin the time period is included. athologist Signature ,URIN Negative Negative [facility]20[facility] PM [facility]T [facility] Specimen Anatomical Collection Method Collection Time Receive d Time (Source) Location / / Volume Laterality Urine URINE SPECIMEN / Non-Blood / 05/29/2022 4:47 PM 05/29 4:47 Unknown Unknown CDT PM CDT Ayah Layton DO URINE Performing Organization Address City/State/ZIP Code [place]ian [place] [address] [place] INSERTION INTRAUTERINE DEVICE IUD (05/22/2022 3:10 PM CDT) Narrative Ayah Layton DO - 05/22/2022 3:10 PM CDT Ayah Layton DO ? 05/22/2022 ??3:14 PM IUD Insertion Date/Time: 05/22/2022 3:10 PM Performed by: Ayah Layton DO Authorized by: Ayah Layton DO Consent: ??Consent obtained: ??Verbal ??Consent given by: ??Patient ??Procedure risks and benefits discusse d: yes ?Patient questions answered: yes ?Patient agrees, verbalizes understand ing, and wants to proceed: yes ?Educational handouts given: yes ?Instructions and paperwork completed: yes ?? Procedure: ??Pelvic exam performed: yes ?Negative urine test: yes ?Cervix cleaned and prepped: yes ?Speculum placed in vagina: yes ?Tenaculum applied to cervix: yes ?Uterus sounded: yes ?Uterus sound depth (cm): ??9 ??IUD inserted with no complications: y es ?IUD type: ??Mirena ??Strings trimmed: yes ?? Post-procedure: ??Patient tolerated procedure well: yes ?Patient will follow up after next per iod: yes ?? Comments: ?? -- Reviewed risk of infection, bleed ing, pain, risk of tubal , perforation of uterus, migration of the IUD and possible loss of strings -- ??Patient is aware can have some spot ting or irregular bleeding with the IUD. ??Patient also aware that IUD is no t 100% effect so that is unlikely, but possible. ?? -- ??Mirena IUD to be removed in 5 years . ?? -- ??Patient may use NSAID for discomfor t. -- ??If pain or bleeding is present and worsening, patient needs to contact medical care. -- ??Patient counseled that IUD does not protect against STDs and if STD does occur, then IUD might need to be re moved. ?? -- ??Taught patient how to feel IUD stri ngs as spontaneous expulsion of IUD can occur. ??Return to care if unable to feel strings. -- ??Avoid putting anything in your vagi na for 1 week including tampons and having intercourse. Ayah Ann Calin DO PROCEDURE ORD US LOWER EXTREMITY SOFT TISSUE RIGHT (05/07/2022 3:24 PM CDT) Anatomical Region Laterality Modality LEG R Ultrasound Specimen (Source) Anatomical Collection Method Collection Time Re ceived Time Location / / Volume Laterality 05/07/2022 3:24 PM CDT Impressions 05/07/2022 3:40 PM CDT 1. ??Indeterminate medial thigh 6.5 cm intramuscular mass. MRI with contrast recommended for further evaluation. 2. ??Report discussed with Dr. Krueger at 3:40 PM Narrative 05/07/2022 3:40 PM CDT For Patients: As a result of the Cures Act, medical imaging exams and procedure reports are released immediately into your electronic medical record. You may view this report before your re ferring provider. If you have questions, please contact your health care provider. EXAM: US LOWER EXTREMITY SOFT TISSUE RIG HT LOCATION: [facility] DATE/TIME: 05/07/2022 3:24 PM INDICATION: Upper right thigh mobile sof t tissue mass, mildly tender, developed after active intercourse with new partner. ??Clinically suspect possible hematoma from muscle tear. Trauma 10 days ago. COMPARISON: None. TECHNIQUE: Routine. FINDINGS: The upper right medial thigh h as a 6.5 x 3.9 x 3.3 cm marginated intramuscular mass with blood flow. The history would suggest hematoma, however the internal blood flow is atypical for hematoma. Therefore a neoplasm is possible. Procedure Note Last Ackerman MD - 05/07/20 22 For Patients: As a result of the Cures Act, medical imaging exams and procedure reports are released immediately into your electronic medical record. You may view this report before your referring provider. If you have questions, please contact [facility] health care provider. EXAM: US LOWER EXTREMITY SOFT TISSUE RIG HT LOCATION: [facility] DATE/TIME: 05/07/2022 3:24 PM INDICATION: Upper right thigh mobile sof t tissue mass, mildly tender, developed after active intercourse with new partner. Clinically suspect possible hematoma from muscle tear. Trauma 10 days ago. COMPARISON: None. TECHNIQUE: Routine. FINDINGS: The upper right medial thigh h as a 6.5 x 3.9 x 3.3 cm marginated intramuscular mass with blood flow. The history would suggest hematoma, however the internal blood flow is atypical for hematoma. Therefore a neoplasm is possible. IMPRESSION: 1. Indeterminate medial thigh 6.5 cm int ramuscular mass. MRI with contrast recommended for further evaluation. 2. Report discussed with Dr. Krueger at 3 :40 PM Rupali Krueger PA-C US (ABNORMAL) URINALYSIS MICROSCOPIC (05/07/2022 3:06 PM CDT)Only the most recent of2 resultswithin the time period is included. [facility] Method Time Signature RBC 3-5 (A) 0-2, None 05/07/2022 URGENCY ROOM Seen /HPF 3:24 PM CDT [facility] WBC >100 (A) 0-2, 3-5, 05/07/2022 URGENCY ROOM None Seen 3:24 PM CDT [facility] /HPF BACTERIA Moderate (A) None 05/07/2022 URGENCY ROOM Seen, Few 3:24 PM CDT [facility] Bacteria/ HPF EPITHELIAL Few None 05/07/2022 URGENCY ROOM CELLS Seen, Few 3:24 PM CDT [facility] Epi/HPF OTHER White Cell 05/07/2022 URGENCY ROOM Clumps 3:24 PM CDT [facility] Present Specimen Anatomical Collection Method Collection Time Receive d Time (Source) Location / / Volume Laterality Urine URINE SPECIMEN / Non-Blood / 05/07/2022 3:06 PM 05/07 3:06 Unknown Unknown CDT PM CDT Rupali Krueger PA-C URINE Performing Organization Address City/State/ZIP Code Phon e Number URGENCY ROOM [facility] [address] [facility] [place] [address] URINE CULTURE (05/07/2022 3:06 PM CDT)Only the most recent of2 resultswithin the time period is included. [facility] Method Time Signature CULTURE <10,000 CFU/mL 05/09/2022 Divided multiple 12:55 PM CDT LABORATORY-[facility] Specimen Anatomical Collection Method Collection Time Receive d Time (Source) Location / / Volume Laterality Urine URINE SPECIMEN / Non-Blood / 05/07/2022 3:06 PM 05/07 3:39 Unknown Unknown CDT PM CDT Rupali Krueger PA-C MICROBIOLOGY Performing Organization Address City/State/ZIP Code Phon e Number [facility] [address] [place] [address] LABORATORY-CENTRAL 2000 LABORATORY (ABNORMAL) URINALYSIS W REFLEX MICROSCOPIC IF POSITIVE (05/07/2022 3:06 PM CDT) Only the most recent of2 resultswithin the time period is included. [facility] Method Time Signature COLOR Yellow Yellow Color 05/07/2022 URGENCY ROOM 3:10 PM CDT [facility] CLARITY Slightly Clear 05/07/2022 URGENCY ROOM Cloudy (A) Clarity 3:10 PM CDT [facility] SPECIFIC 1.010 1.010, 05/07/2022 URGENCY ROOM GRAVITY,URINE 1.015, 3:10 PM CDT [facility] 1.020, 1.025 PH,URINE 6.0 6.0, 7.0, 05/07/2022 URGENCY ROOM 8.0, 5.5, 3:10 PM CDT [facility] 6.5, 7.5, 8.5 UROBILINOGEN, Normal Normal EU/dl 05/07/2022 URGENCY ROOM QUALITATIVE 3:10 PM CDT [facility] PROTEIN, Negative Negative 05/07/2022 URGENCY ROOM URINE mg/dL 3:10 PM CDT [facility] GLUCOSE, Negative Negative 05/07/2022 URGENCY ROOM URINE mg/dL 3:10 PM CDT [facility] KETONES,URINE Negative Negative 05/07/2022 URGENCY ROOM mg/dL 3:10 PM CDT [facility] BILIRUBIN,URI Negative Negative 05/07/2022 URGENCY ROOM NE 3:10 PM CDT [facility] OCCULT Moderate (A) Negative 05/07/2022 URGENCY ROOM BLOOD,URINE 3:10 PM CDT [facility] NITRITE Negative Negative 05/07/2022 URGENCY ROOM 3:10 PM CDT [facility] LEUKOCYTE Moderate (A) Negative 05/07/2022 URGENCY ROOM ESTERASE 3:10 PM CDT [facility] Specimen Anatomical Collection Method Collection Time Receive d Time (Source) Location / / Volume Laterality Urine URINE SPECIMEN / Non-Blood / 05/07/2022 3:06 PM 05/07 3:06 Unknown Unknown CDT PM CDT Rupali Krueger PA-C URINE Performing Organization Address City/[facility] Phon e Number URGENCY ROOM [facility] [address] [place] [address] GC CHLAMYDIA TRACH PCR EPPA (05/07/2022 3:03 PM CDT) [facility] Method Time Signature CHLAMYDIA PCR NOT Detected NOT Detected 05/07/2022 URGENCY R OOM 3:49 PM CDT [facility] Comment: Chlamydia trachomatis target DNA was NOT detected. ?? A negative result does not eliminate the possibility of infection, and results should be considered in conjunction with clinical assessment. ??If a symptomatic male patient has a Chlamydia negative test result, further testing with another mo lecular test is recommended. N GONORRHOEAE PCR NOT Detected NOT Detected 05/07/2022 3:49 PM URGENCY ROOM CDT [facility] Comment: Neisseria gonorrhoeae target DNA was NOT detected. ?? A negative result does not eliminate the possibility of infection, and results should be considered in conjunction with clinical assessment. ??High numbers of leukocytes in urine may cause a false negative GC result. Specimen Anatomical Collection Method Collection Time Receive d Time (Source) Location / / Volume Laterality Swab VAGINAL SWAB / Non-Blood / 05/07/2022 3:03 PM 05/07/2 022 3:10 Unknown Unknown CDT PM CDT Narrative URGENCY ROOM [facility] - 05/07/2022 3:49 PM CDT Results provided by this assay should be considered in conjunction with other clinical and laboratory data available t o the clinician to ascertain the presence or extent of a Chlamydia trachomatis and/or Neisseria gonorrhoeae infection. ??This assay has not been evaluated in female p atients younger than 16 years of age or male patients younger than 17 years of age. ? ? Rupali Krueger PA-C MICROBIOLOGY Performing Organization Address City/State/ZIP Code Phon e Number URGENCY ROOM [facility] [address] [place] [address] (ABNORMAL) WET PREP GENITAL (05/07/2022 3:03 PM CDT) [facility] Method Time Signature TRICHOMONAS None Seen None Seen 05/07/2022 URGENCY ROOM 3:15 PM CDT [facility] YEAST None Seen None Seen 05/07/2022 URGENCY ROOM 3:15 PM CDT [facility] CLUE CELLS Not Present Not Present 05/07/2022 URGENCY ROOM 3:15 PM CDT [facility] WBC, WET PREP Many None Seen 05/07/2022 URGENCY ROOM (>10/hpf) 3:15 PM CDT [facility] (A) Specimen Anatomical Collection Method Collection Time Receive d Time (Source) Location / / Volume Laterality Genital SPECIMEN FROM Non-Blood / 05/07/2022 3:03 PM 05/07/20 3:10 VAGINA / Unknown Unknown CDT PM CDT Rupali Krueger PA-C MICROBIOLOGY Performing Organization Address City/State/ZIP Code Phon e Number URGENCY ROOM [facility] [address] [place] [address] XR MAMMO JANIS BILAT SCREEN IMPLANT (10/04/2021 4:36 PM PROPERTY FIELD INSPECTOR)Only the most recent of2 resultswithin the time period is included. Anatomical Region Laterality Modality BREASTS, Breast Left, Breast Right Bilateral Mammo graphy Specimen (Source) Anatomical Location Collection Method / Collectio n Time Received Time / Laterality Volume Impressions 10/05/2021 4:07 PM PROPERTY FIELD INSPECTOR ??There is no radiographic evidence for malignancy. ??Recommend annual mammograms. MAMMOGRAM ASSESSMENT: ??ACR 2 Benign PATIENTS: You will also receive a letter with your examination results in an easy to read format. ??If you have qu estions about your results, please contact your referring provider. Narrative 10/05/2021 4:07 PM PROPERTY FIELD INSPECTOR For Patients: As a result of the 21st Century Cures Act, medical imaging exams and procedure reports are released immediately into your electronic medical record. You may view this report before your referring provider. If you have questions, please contact [facility] care provider. XR MAMMO JANIS BILAT SCREEN IMPLANT [[id number]] CLINICAL HISTORY: ??This is an asymptoma tic 51 y.o. patient. INDICATION FOR EXAM: Mammogram Screening . TECHNIQUE: CC & MLO views were obtained. Implant displacement views were obtained. This study was evaluated with the assistance of Computer-Aided Detection. Breast Tomosynthesis was used in interpretation. COMPARISON FILMS: Yes 06/19/20 [facility] ?? FINDINGS: ??The breasts are heterogeneou sly dense, which may obscure small masses. ??No suspicious masses or microc alcifications. ??Implant(s) within both breasts and Post biopsy changes bot h breasts. Rad Santiago MD MAMMO TSH (08/30/2021 5:19 PM PROPERTY FIELD INSPECTOR)Only the most recent of3 resultswithin the time period is included. athologist Signature TSH 3.49 0.35 - 4.94 08/30/2021 [facility] uIU/mL 10:12 PM PROPERTY FIELD INSPECTOR LABORATORY-CENTR AL LABORATORY Specimen Anatomical Collection Method / Collection Time Recei alannah Time (Source) Location / Volume Laterality Blood BLOOD SPECIMEN / Venipuncture / 08/30/2021 5:19 2021 5:19 Unknown Unknown PM PROPERTY FIELD INSPECTOR PM PROPERTY FIELD INSPECTOR Narrative [facility] LABORATORY-CENTRAL LABORAT ORY - 08/30/2021 10:12 PM PROPERTY FIELD INSPECTOR In Adults, TSH values between 5.00 and 10.00 uIU/ml do not necessarily indicate the presence of Hyp othyroidism. Correlation with clinical findings such as presence of goiter and/or Thyroperoxidase (TPO) Antibody ma y be helpful. For more information please refer to RAFAELA 20 ; 291: [phone]. Rad Santiago MD CHEMISTRY Performing Organization Address City/State/ZIP Code Phon e Number [facility] [address] [place] [address] LABORATORY-CENTRAL 1999 LABORATORY SCAN-COLONOSCOPY (06/21/2021 1:30 PM PROPERTY FIELD INSPECTOR) Procedure Note Kaye Andrade MD - 06/21/2021 12:38 PM CST [facility] [address], [address], [place] [address] Patient Name: Mady Sauceda Gen fatuma: Female Exam Date: 06/21/2021 Visit Number: [id number] Age: 51 Years Date of : 1970 Attending MD: Kaye Andrade MD Medical Re cord#: [id number] Procedure: Colonoscopy Indications: Occult blood in stool Referring MD: Angie Boss CNP Primary MD: Angie Boss CNP Medications: Admitting Medications: 0.9% Normal Saline at TKO Intra Procedure Medications: Patient received monitored anesthesia c are. Complications: No immediate complication s Procedure: An examination of the heart and lungs wa s performed and found to be within acceptable limits. . The patient was therefore deemed a reasonable candidate for endoscopy and sedation. The risks and benefits of the procedure were explained to the patient. After obtaining informed consent, the patient received monitored anesthesia care and I passed the scope without difficulty via the rectum to th e cecum. The appendiceal orifice and ic valve were identified. The scope was retroflexed during the examination The quality of the prep was good (Miralax/Gatorade/2 tablets Bisacodyl/Magnesium Citrate). This was a complete examination througho ut the entire colon. Findings: Polyp location: cecum. Quantity: 1. Size : 2 mm. Polyp shape: sessile. Maneuver: polypectomy was performed wit h a cold biopsy forceps. Removal: complete. Retrieval: complete. Bleeding: none. Polyp location: descending colon. Quanti ty: 1. Size: 4 mm. Polyp shape: sessile. Maneuver: polypectomy was performed wit h a cold snare . Removal: complete. Retrieval: complete. Bleeding: none. Hemorrhoids. Internal hemorrhoids withou t bleeding. Impression: Colorectal polyps Hemorrhoids, internal Preliminary Plan: The patient and their physician will rec eive a copy of the pathology report as well as pathology-based recommendations for future screening or surveillance. Pathology Results: A: COLON, CECUM, POLYP: 1. Sessile serrated adenoma 2. Negative for overt dysplasia 3. Per the colonoscopy report: a. Polyp size: 2 mm b. Resection: Complete c. Retrieval: Complete B: COLON, DESCENDING, POLYP: 1. Tubular adenoma 2. Negative for high grade dysplasia 3. Per the colonoscopy report: a. Polyp size: 4 mm b. Resection: Complete c. Retrieval: Complete MICROSCOPIC A: Performed B: Performed Electronically signed by: Kian galarza MD Interpreted at [facility], [address] [place] [id number] Orders Instruction(s)/Education: Instruction/Education Timeframe Assessme nt Colon Cancer Prevention K63.5 Colon Polyps K63.5 Hemorrhoids K63.5 High Fiber Diet K63.5 Final Plan: Repeat colonoscopy in 5 years. We will attempt to contact you at approp riate intervals via [place]. mail. We may not be able to find you or contact you at that time, therefore you should know that the responsibility for following our recommendation rests with you. If you don't hear from us at t he time your procedure is due, please contact our office to schedule an appointment. If your contact information should change, please contact our office so that we can update your record. _Electronically signed by: Kaye Andrade MD 06/21/2021 cc: Angie Boss CNP cc: Angie Boss CNP Kaye Andrade MD OTHER CBC W PLT NO DIFF (04/05/2021 10:51 AM CDT)Only the most recent of2 results within the time period is included. P athologist Signature WHITE BLOOD 8.2 4.5 - 11.0 04/05/2021 [facility] COUNT thou/cu mm 10:56 AM CDT [facility] RED BLOOD COUNT 4.64 4.00 - 04/05/2021 [facility] 5.20 10:56 AM CDT [facility] mil/cu mm HEMOGLOBIN 14.6 12.0 - 04/05/2021 [facility] 16.0 g/dL 10:56 AM CDT [facility] HEMATOCRIT 42.3 33.0 - 04/05/2021 [facility] 51.0 % 10:56 AM CDT [facility] MCV 91 80 - 100 04/05/2021 [facility] fL 10:56 AM CDT [facility] MCH 31.5 26.0 - 04/05/2021 [facility] 34.0 pg 10:56 AM CDT [facility] MCHC 34.5 32.0 - 04/05/2021 [facility] 36.0 g/dL 10:56 AM T [facility] RDW 13.2 11.5 - 04/05/2021 [facility] 15.5 % 10:56 AM T [facility] [place] COUNT 264 140 - 440 04/05/2021 [facility] thou/cu mm 10:56 AM T [facility] MPV 9.1 6.5 - 11.0 04/05/2021 [facility] fL 10:56 AM CDT [facility] Specimen Anatomical Collection Method Collection Time Receive d Time (Source) Location / / Volume Laterality Blood BLOOD SPECIMEN / Butterfly / 04/05/2021 10:51 021 Unknown Unknown AM CDT 10:51 AM CDT Ina Santana DO [facility] Performing Organization Address City/State/ZIP Code Phon e Number [facility] [address] [id number] 21 US BREAST UNILATERAL RIGHT LIMITED (02/21/2021 9:22 AM CDT) Anatomical Region Laterality Modality BREASTS, Breast Right Right Ultrasound Specimen (Source) Anatomical Collection Method Collection Time Re ceived Time Location / / Volume Laterality 02/21/2021 9:22 AM CDT Narrative 02/21/2021 10:31 AM CDT For Patients: As a result of the Century Cures Act, medical imaging exams and procedure reports are released immediately into your [facility] medical record. You may view this report before your referring provider. If you have questions, please contact your health care provider. CLINICAL HISTORY: 50-year-old female wit h palpable lump right breast. 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 COMPARISON: 07/13/2020, 06/30/2020. BREAST DENSITY: Heterogeneously dense, w hich may obscure small masses. RIGHT DIGITAL DIAGNOSTIC MAMMOGRAM: FINDINGS: A diagnostic right mammogram w as performed utilizing tomosynthesis. Oval-shaped mass in the lateral right breast which corresponds to the patient's biopsy-proven fibroadenoma. When performed, computer-aided detection was used in the interpretation of this study. RIGHT BREAST ULTRASOUND: FINDINGS: Ultrasound evaluation of the r ight breast was performed. Stable biopsy-proven fibroadenoma right breast 8:00, 6 cm from nipple which corresponds to the palpable lump reported by the patient. IMPRESSION: No evidence of malignancy. ? ? RECOMMENDATION: Resume routine screening mammography. The patient was provided with the results and recommendations at the completion of the examination. ACR 2: Benign Finding(s). The patient will receive a lay language report of this examination. Rad Santiago MD US XR MAMMO JANIS UNI DIAG IMPLANT RIGHT (02/21/2021 9:01 AM CDT) Anatomical Region Laterality Modality BREASTS, Breast Right Mammography Specimen (Source) Anatomical Collection Method Collection Time Re ceived Time Location / / Volume Laterality 02/21/2021 9:01 AM CDT Narrative 02/21/2021 10:31 AM CDT For Patients: As a result of the Cures Act, medical imaging exams and procedure reports are released immediately into your [facility] medical record. You may view this report before your referring provider. If you have questions, please contact your health care provider. CLINICAL HISTORY: 50-year-old female wit h palpable lump right breast. 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 COMPARISON: 07/13/2020, 06/30/2020. BREAST DENSITY: Heterogeneously dense, w hich may obscure small masses. RIGHT DIGITAL DIAGNOSTIC MAMMOGRAM: FINDINGS: A diagnostic right mammogram w as performed utilizing tomosynthesis. Oval-shaped mass in the lateral right breast which corresponds to the patient's biopsy-proven fibroadenoma. When performed, computer-aided detection was used in the interpretation of this study. RIGHT BREAST ULTRASOUND: FINDINGS: Ultrasound evaluation of the r ight breast was performed. Stable biopsy-proven fibroadenoma right breast 8:00, 6 cm from nipple which corresponds to the palpable lump reported by the patient. IMPRESSION: No evidence of malignancy. ? ? RECOMMENDATION: Resume routine screening mammography. The patient was provided with the results and recommendations at the completion of the examination. ACR 2: Benign Finding(s). The patient will receive a lay language report of this examination. Procedure Note Kimberlee Veronica, - 02/21/2021 For Patients: As a result of the 21st Ce ntury Cures Act, medical imaging exams and procedure reports are released immediately into your electronic medical record. You may view this report before your referring provider. If you have questions, please contact [facility] health care provider. CLINICAL HISTORY: 50-year-old female wit h palpable lump right breast. 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 COMPARISON: 07/13/2020, 06/30/2020. BREAST DENSITY: Heterogeneously dense, w hich may obscure small masses. RIGHT DIGITAL DIAGNOSTIC MAMMOGRAM: FINDINGS: A diagnostic right mammogram w as performed utilizing tomosynthesis. Oval-shaped mass in the lateral right breast which corresponds to the patient's biopsy-proven fibroadenoma. When performed, computer-aided detection was used in the interpretation of this study. RIGHT BREAST ULTRASOUND: FINDINGS: Ultrasound evaluation of the r ight breast was performed. Stable biopsy-proven fibroadenoma right breast 8:00, 6 cm from nipple which corresponds to the palpable lump reported by the patient. IMPRESSION: No evidence of malignancy. RECOMMENDATION: Resume routine screening mammography. The patient was provided with the results and recommendations at the completion of the examination. ACR 2: Benign Finding(s). The patient will receive a lay language report of this examination. Rad Santiago MD MAMMO (ABNORMAL) OCCULT BLOOD IFOBT STOOL (08/11/2020 11:24 AM PROPERTY FIELD INSPECTOR)Only the most recent of2 resultswithin the time period is included. [facility] Method Time Signature STOOL BLOOD Positive (A) Negative 08/16/2020 [facility] ,IFOBT 9:14 AM PROPERTY FIELD INSPECTOR [facility] Specimen Anatomical Collection Method Collection Time Receive d Time (Source) Location / / Volume Laterality Stool STOOL SPECIMEN / Non-Blood / 08/11/2020 11:24 021 9:05 Unknown Unknown AM PROPERTY FIELD INSPECTOR AM PROPERTY FIELD INSPECTOR Angie Boss NP LABORATORY Performing Organization Address City/State/ZIP Code Phon e Number [place] [id number] 21 XR MAMMO POST CLIP PLCMT BILAT (07/13/2020 10:48 AM PROPERTY FIELD INSPECTOR) Anatomical Region Laterality Modality Breast Right, Breast Left N/A Mammography Specimen (Source) Anatomical Collection Method Collection Time Re ceived Time Location / / Volume Laterality 07/13/2020 10:48 AM PROPERTY FIELD INSPECTOR Addenda Addendum by Jaqui Retana MD on 07/14/2020 12:06 PM PROPERTY FIELD INSPECTOR PATHOLOGY ADDENDUM: Final pathology of dwaine bajwa ultrasound-guided biopsy of the right breast at 8:00 6 cm from the nippl e yields fibroadenoma. Imaging and pathology findings are concordant. RECOMMENDATION: Recommend annual screeni ng mammography. The [facility] nursing staff will notify the pat ients of the pathology results and recommendations. Narrative 07/13/2020 12:34 PM PROPERTY FIELD INSPECTOR EXAM: US BIOPSY BREAST NEEDLE W TEODORO W GUIDE RIGHT, XR MAMMO POST CLIP PLCMT BILAT LOCATION: [facility] DATE/TIME: 07/13/2020 10:31 AM ?? INDICATION: 1.6 x 0.8 x 1.1 cm oval, hyp oechoic mass within the right breast at the 8:00 position, 6 cm from the nipple. PROCEDURE: Informed consent was obtained from the patient. A time out was performed where the proper patient, procedure, and site were confirmed. Ultrasound was used to localize the mass in the 8:00 pos ition of the right breast 6 cm from the nipple. The skin was marked, then prepped and draped in a sterile fashion. 1% lidocaine was used for local anesthesia and additional deep anesthesia achieved usin g lidocaine with epinephrine. A small de rmatotomy was made to accommodate the biopsy needle. Under direct sonographic guidance, a 14 gauge coaxial needle was used to obtain 3 core biopsies. A open coil- shaped clip was then placed. The patient was taken to a separate room with a separate mammography machine, and a two-view digital mammogram was performed to verify the clip placement and any complicatio ns. The mammogram showed the clip to be in good position. IMPRESSION: 1. ??Ultrasound-guided biopsy of a mass in the right breast at the 8:00 position. Pathology pending. 2. ??Post procedure mammogram for marker placement. ? Procedure Note Sarah Kim, DO / Dakota Retana MD - 07/13/2020 EXAM: US BIOPSY BREAST NEEDLE W TEODORO W G UIDE RIGHT, XR MAMMO POST CLIP PLCMT BILAT LOCATION: [facility] DATE/TIME: 07/13/2020 10:31 AM INDICATION: 1.6 x 0.8 x 1.1 cm oval, hyp oechoic mass within the right breast at the 8:00 position, 6 cm from the nipple. PROCEDURE: Informed consent was obtained from the patient. A time out was performed where the proper patient, procedure, and site were confirmed. Ultrasound was used to localize the mass in the 8:00 position of the right breast 6 cm from the nipple. The skin wa s marked, then prepped and draped in a sterile fashion. 1% lidocaine was used for local anesthesia and additional deep anesthesia achieved using lidocaine with epinephrine. A small dermatotomy was made to accommodat e the biopsy needle. Under direct sonographic guidance, a 14 gauge coaxial needle was used to obtain 3 core biopsies. A open coil-shaped clip was then placed. The patient was taken to a separate room with a separate mammo graphy machine, and a two-view digital mammogram was performed to verify the clip placement and any complications. The mammogram showed the clip to be in good position. IMPRESSION: 1. Ultrasound-guided biopsy of a mass in the right breast at the 8:00 position. Pathology pending. 2. Post procedure mammogram for marker p lacement. Ina Santana DO MAMMO US BIOPSY BREAST NEEDLE W TEODORO W GUIDE LEFT (07/13/2020 10:33 AM PROPERTY FIELD INSPECTOR) Anatomical Region Laterality Modality Breast Left Left Ultrasound Specimen (Source) Anatomical Collection Method Collection Time Re ceived Time Location / / Volume Laterality 07/13/2020 10:33 AM PROPERTY FIELD INSPECTOR Addenda Addendum by Jaqui Retana MD on 07/14/2020 12:06 PM PROPERTY FIELD INSPECTOR PATHOLOGY ADDENDUM: Final pathology of t aydee ultrasound-guided biopsy of the left breast at 1:00, 6 cm from nipple thai elds fibroadenomas change. Imaging and pathology findings are concordant. RECOMMENDATION: Recommend annual screeni ng mammography. The [facility] nursing staff will notify the pat ients of the pathology results and recommendations. Narrative 07/13/2020 12:34 PM PROPERTY FIELD INSPECTOR EXAM: US BIOPSY BREAST NEEDLE W TEODORO W GUIDE LEFT LOCATION: [facility] DATE/TIME: 07/13/2020 10:33 AM INDICATION: 0.4 x 0.3 x 0.4 cm oval, hyp oechoic mass with circumscribed and indistinct margins within the left breast at the 1 o'clock position, 6 cm from the nipple. PROCEDURE: Informed consent was obtained from the patient. Ultrasound was used to localize the mass in the 1 o'clock position of the left breast 6 cm from the nipple. The skin was marked then prepped an d draped in sterile fashion. 1% lidocain e was used for local anesthesia and additional deep anesthesia achieved using lidocaine with epinephrine. A small dermatotomy was made to accommodate the biopsy n eedle. Under direct sonographic guidance , a 14 gauge coaxial needle was used to obtain 3 core biopsies. A open coil-shaped clip was then placed. The patient was taken to a separate room with a separate mammography machine, and a two-view digi fabricio mammogram was performed to verify the clip placement and any complications. The mammogram showed the clip to be in good position. IMPRESSION: 1. ??Ultrasound-guided biopsy of a mass in the left breast at the 1 o'clock position. Pathology pending. 2. ??Post procedure mammogram for marker placement. Ina Santana DO US US BIOPSY BREAST NEEDLE W TEODORO W GUIDE RIGHT (07/13/2020 10:31 AM PROPERTY FIELD INSPECTOR) Anatomical Region Laterality Modality Breast Right Right Ultrasound Specimen (Source) Anatomical Collection Method Collection Time Re ceived Time Location / / Volume Laterality 07/13/2020 10:31 AM PROPERTY FIELD INSPECTOR Addenda Addendum by Jaqui Retana MD on 07/14/2020 12:06 PM PROPERTY FIELD INSPECTOR PATHOLOGY ADDENDUM: Final pathology of t aydee ultrasound-guided biopsy of the right breast at 8:00 6 cm from the nippl e yields fibroadenoma. Imaging and pathology findings are concordant. RECOMMENDATION: Recommend annual screeni ng mammography. The [facility] nursing staff will notify the pat ients of the pathology results and recommendations. Narrative 07/13/2020 12:34 PM PROPERTY FIELD INSPECTOR EXAM: US BIOPSY BREAST NEEDLE W TEODORO W GUIDE RIGHT, XR MAMMO POST CLIP PLCMT BILAT LOCATION: [facility] DATE/TIME: 07/13/2020 10:31 AM ?? INDICATION: 1.6 x 0.8 x 1.1 cm oval, hyp oechoic mass within the right breast at the 8:00 position, 6 cm from the nipple. PROCEDURE: Informed consent was obtained from the patient. A time out was performed where the proper patient, procedure, and site were confirmed. Ultrasound was used to localize the mass in the 8:00 pos ition of the right breast 6 cm from the nipple. The skin was marked, then prepped and draped in a sterile fashion. 1% lidocaine was used for local anesthesia and additional deep anesthesia achieved usin g lidocaine with epinephrine. A small de rmatotomy was made to accommodate the biopsy needle. Under direct sonographic guidance, a 14 gauge coaxial needle was used to obtain 3 core biopsies. A open coil- shaped clip was then placed. The patient was taken to a separate room with a separate mammography machine, and a two-view digital mammogram was performed to verify the clip placement and any complicatio ns. The mammogram showed the clip to be in good position. IMPRESSION: 1. ??Ultrasound-guided biopsy of a mass in the right breast at the 8:00 position. Pathology pending. 2. ??Post procedure mammogram for marker placement. ? Ina Santana DO US PATH TISSUE EXAM (07/13/2020 9:50 AM PROPERTY FIELD INSPECTOR)Only the most recent of2 resultswithin the time period is included. Component Value Ref Test Analysis Performed At [facility] Range Method Time Signature Case Report Pathology Report ?Case: [id number] ? 07/14/2020 [facility] Authorizing Provider: ??Sarah Kim, DO ?? Collected: ? 07/13/2020 0950 ? 11:11 AM HEALTH Ordering Location: ? [facility] - ?Received: ?07/13/2020 1046 ? PROPERTY FIELD INSPECTOR LABO MIGUEL ANGEL-David ? [place] ? ENTRAL Pathologist: ? Oz Delarosa MD ? LABORATORY Specimens: ?? A) - Right Britany ast Core Ultrasound Biopsy ? B) - Left Breast Core Ultrasound Biopsy ? Final A) RIGHT BREAST, 8:00, 6 CM FROM NIPPLE, ULTRASOUND- IDED CORE BIOPSY: 07/14/2020 [facility] Electronically Diagnosis 1. Fibroadenoma 11:11 AM HEALTH sign ed by Dom, 2. Negative for atypia and malignancy CS T LABORATORY-C JENNIFER Cohn MD for Hilda onald, B) LEFT BREAST, 1:00, 6 CM FROM NIPPLE, ULTRASOUND-GUIDED CORE BIOPSY: LABORATORY MD Oz on 1. Fibroadenomatous change (4 mm) 07/14/2020 at 2. Negative for atypia and malignancy 11:11 AM Comment A,B) These are image-guided biopsies. The pathologic findings should be correlated with radiologic and clinical findings prior to treatment decisions. 07/14/2020 [facility] 11:11 AM HEALTH Case seen in consultation with Dr. Fernandes. PROPERTY FIELD INSPECTOR LABORATORY-C ENTRAL LABORATORY Clinical A) 1.6 x 0.8 x 1.1 cm oval, hypoechoic mass within the right breast at the 8:00 position, 6 cm from the nipple. 07/14/2020 [facility] Information 11:11 AM HEALTH B) 0.4 x 0.3 x 0.4 cm oval, hypoechoic mass with circumscribed and indistinct margins within the left breast at the 1 o'clock position, 6 cm from the nipple. PROPERTY FIELD INSPECTOR LABORATORY-C ENTRAL LABORATORY Gross A) Label: ??Patient's name and right breast U/S core BX 07/14/2020 [facility] Description Description: 3 Fibrofatty core biopsies 11:11 AM HOSPITAL Size: 1.2-1.6 cm in length by 0.2 cm in diameter PROPERTY FIELD INSPECTOR LABORATORY Ink color: Black The specimen is submitted in toto in one cassette. Cold ischemia time < 60 amadou frank. The specimen was fixed in formalin for a minimum of 6 hours and not longer than 72 hours. LDW 07/13/2020 B) Label: ??Patient's name and left breast U/S core BX Description: 2 Fibrofatty core biopsies Size: 0.8-1.8 cm in length by 0.2 cm in diameter Ink color: Blue The specimen is submitted in toto in one cassette. Cold ischemia time < 60 amadou frank. The specimen was fixed in formalin for a minimum of 6 hours and not longer than 72 hours. LDW 07/13/2020 Microscopic The final diagnosis is based on microscopic examination of appropriate sections of all specimens. 07/14/2020 [facility] Description 11:11 AM HEALTH A) Black ink is confirmed on tissue sections. PROPERTY FIELD INSPECTOR LABORATORY-C B) Blue ink is confirmed on tissue sections. ENTRAL LABORATORY Additional 07/14/2020 [facility] Information Interpreted at [facility], [facility] Laboratory - [address], [place] [address] 11:11 AM HEALTH PROPERTY FIELD INSPECTOR LABORATORY-C ENTRAL LABORATORY Specimen (Source) Anatomical Collection Method Collection Time Re ceived Time Location / / Volume Laterality Other (Right 07/13/2020 9:50 07/13/2020 Breast Core AM PROPERTY FIELD INSPECTOR 10:46 AM PROPERTY FIELD INSPECTOR Ultrasound Biopsy) Specimen 07/13/2020 10:10 07/13/2020 (specimen) (Left AM PROPERTY FIELD INSPECTOR 10:46 AM CS T Breast Core Ultrasound Biopsy) Sarah Li-Geovanna Julio DO PATHOLOGY/CYTOLOGY Performing Organization Address City/State/ZIP Code Phon e Number [facility] [address] [place] [address] LABORATORY-CENTRAL [address] [facility] SENDOUT INTERNAL ZIP [place], [place] [phone] [facility] US BREAST BILATERAL LIMITED (06/30/2020 8:12 AM PROPERTY FIELD INSPECTOR) Anatomical Region Laterality Modality BREASTS, Breast Left, Breast Right Bilateral Ultra sound Specimen (Source) Anatomical Collection Method Collection Time Re ceived Time Location / / Volume Laterality 06/30/2020 8:12 AM PROPERTY FIELD INSPECTOR Narrative 06/30/2020 12:01 PM PROPERTY FIELD INSPECTOR EXAM: XR MAMMO JANIS BILAT ADDL VIEWS IMPLANT, US BREAST BILATERAL LIMITED LOCATION: [facility] DATE/TIME: 06/30/2020 7:52 AM INDICATION: Abnormal mammogram. COMPARISON: 06/19/2020, 12/05/2017, 015. MAMMOGRAPHIC FINDINGS: Bilateral full-fi eld digital diagnostic mammograms performed. The breasts are heterogeneously dense, which may obscure masses. ??Breast tomosynthesis was used in interpretation. B ilateral retropectoral implants are pres ent. The obscured mass in the lower outer aspect of the right breast at the posterior depth, persists on the additional views requiring further evaluation with ta rgeted ultrasound. The asymmetry in the upper outer left breast on the MLO view requires further evaluation with targeted ultrasound. The asymmetry in the inferior left breast on the MLO implant displac ed view localizes to the lower outer gabe drant, requiring further evaluation with targeted ultrasound. ULTRASOUND FINDINGS: Targeted ultrasound of the right breast at the 8 o'clock position, 6 cm from the nipple, demonstrates a circumscribed oval hypoechoic mass which is parallel in orientation measuring 1.6 x 0.8 x 1.1 cm. No internal color v ascular flow. The mass correlates with the finding seen on mammography and is indeterminate. The differential includes possible fibroadenoma. Ultrasound-guided co re needle biopsy is recommended for tiss ue diagnosis. The right breast implant is present. Targeted ultrasound of the upper outer q uadrant of the left breast at the 1 o'clock position, 6 cm from nipple, demonstrates a hypoechoic mass with partially circumscribed and indistinct margins, measur ing 0.4 x 0.3 x 0.4 cm. The mass demonst rates no definite internal vascular flow and is indeterminate, correlating with the abnormality seen on mammography. Further evaluation with ultrasound-guided cor e needle biopsy is recommended for tissu e diagnosis. Targeted ultrasound of the lateral left breast at the 3 o'clock position, 2 cm from nipple, demonstrates a cluster of adjacent cysts, measuring 0.9 x 0.6 x 0.3 cm. The cysts demonstrated no internal color flow and are thought to correlate with the mammographic abnormality. The left breast implant is present. IMPRESSION: ACR BI-RADS Category 4: Suspicious. Results given to and discussed with the patient. 1. ??Indeterminate hypoechoic oval circu mscribed mass in the right breast at the 8 o'clock position, 6 cm from nipple, measuring 1.6 x 0.8 x 1.1 cm. 2. ??Indeterminate hypoechoic mass with partially circumscribed and indistinct margins, in the left breast at the 1 o'clock position, 6 cm from nipple, measuring 0.4 x 0.3 x 0.4 cm. 3. ??Right breast ultrasound-guided core needle biopsy and left breast ultrasound-guided core needle biopsy recommended for tissue diagnosis, which we will assist the patient in scheduling. Procedure Note Ryann Oviedo MD - 06/30/2020F ormatting of this note might be different from the original. EXAM: XR MAMMO JANIS BILAT ADDL VIEWS IMP LANT, US BREAST BILATERAL LIMITED LOCATION: [facility] DATE/TIME: 06/30/2020 7:52 AM INDICATION: Abnormal mammogram. COMPARISON: 06/19/2020, 12/05/2017, 015. MAMMOGRAPHIC FINDINGS: Bilateral full-fi eld digital diagnostic mammograms performed. The breasts are heterogeneously dense, which may obscure masses. Breast tomosynthesis was used in interpretation. Bilateral retropectoral implants are present. The obscured mass in the lower outer aspect of the right breast at the posterior depth, persists on the additional views requiring further evaluation with targeted ultrasound. The asymmetry in the upper outer left br east on the MLO view requires further evaluation with targeted ultrasound. The asymmetry in the inferior left breast on the MLO implant displaced view localizes to the lower outer quadrant, requiring further evaluation w ith targeted ultrasound. ULTRASOUND FINDINGS: Targeted ultrasound of the right breast at the 8 o'clock position, 6 cm from the nipple, demonstrates a circumscribed oval hypoechoic mass which is parallel in orientation measuring 1.6 x 0.8 x 1.1 cm. No internal color vascular flow. The mass correlates with the finding seen on mammography and is indeterminate. The differential includes possible fibroadenoma. Ultrasound-guided core needle biopsy is recommended for tissue diagnosis. The right breast i mplant is present. Targeted ultrasound of the upper outer q uadrant of the left breast at the 1 o'clock position, 6 cm from nipple, demonstrates a hypoechoic mass with partially circumscribed and indistinct margins, measuring 0.4 x 0.3 x 0.4 cm. The mass demonstrates no definite in ternal vascular flow and is indeterminate, correlating with the abnormality seen on mammography. Further evaluation with ultrasound-guided core needle biopsy is recommended for tissue diagnosis. Target ed ultrasound of the lateral left breast at the 3 o'clock position, 2 cm from nipple, demonstrates a cluster of adjacent cysts, measuring 0.9 x 0.6 x 0.3 cm. The cysts demonstrated no internal color flow and are thought to c orrelate with the mammographic abnormality. The left breast implant is present. IMPRESSION: ACR BI-RADS Category 4: Suspicious. Results given to and discussed with the patient. 1. Indeterminate hypoechoic oval circums cribed mass in the right breast at the 8 o'clock position, 6 cm from nipple, measuring 1.6 x 0.8 x 1.1 cm. 2. Indeterminate hypoechoic mass with pa rtially circumscribed and indistinct margins, in the left breast at the 1 o'clock position, 6 cm from nipple, measuring 0.4 x 0.3 x 0.4 cm. 3. Right breast ultrasound-guided core n eedle biopsy and left breast ultrasound- guided core needle biopsy recommended for tissue diagnosis, which we will assist the patient in scheduling. Ina Santana DO US XR MAMMO JANIS BILAT ADDL VIEWS IMPLANT (06/30/2020 7:52 AM PROPERTY FIELD INSPECTOR) Anatomical Region Laterality Modality BREASTS, Breast Left, Breast Right Mammo graphy Specimen (Source) Anatomical Collection Method Collection Time Re ceived Time Location / / Volume Laterality 06/30/2020 7:52 AM PROPERTY FIELD INSPECTOR Narrative 06/30/2020 12:01 PM PROPERTY FIELD INSPECTOR EXAM: XR MAMMO JANIS BILAT ADDL VIEWS IMPLANT, US BREAST BILATERAL LIMITED LOCATION: [facility] BREAST CENTER DATE/TIME: 06/30/2020 7:52 AM INDICATION: Abnormal mammogram. COMPARISON: 06/19/2020, 12/05/2017, 015. MAMMOGRAPHIC FINDINGS: Bilateral full-fi eld digital diagnostic mammograms performed. The breasts are heterogeneously dense, which may obscure masses. ??Breast tomosynthesis was used in interpretation. B ilateral retropectoral implants are pres ent. The obscured mass in the lower outer aspect of the right breast at the posterior depth, persists on the additional views requiring further evaluation with ta rgeted ultrasound. The asymmetry in the upper outer left breast on the MLO view requires further evaluation with targeted ultrasound. The asymmetry in the inferior left breast on the MLO implant displac ed view localizes to the lower outer gabe drant, requiring further evaluation with targeted ultrasound. ULTRASOUND FINDINGS: Targeted ultrasound of the right breast at the 8 o'clock position, 6 cm from the nipple, demonstrates a circumscribed oval hypoechoic mass which is parallel in orientation measuring 1.6 x 0.8 x 1.1 cm. No internal color v ascular flow. The mass correlates with the finding seen on mammography and is indeterminate. The differential includes possible fibroadenoma. Ultrasound-guided co re needle biopsy is recommended for tiss ue diagnosis. The right breast implant is present. Targeted ultrasound of the upper outer q uadrant of the left breast at the 1 o'clock position, 6 cm from nipple, demonstrates a hypoechoic mass with partially circumscribed and indistinct margins, measur ing 0.4 x 0.3 x 0.4 cm. The mass demonst rates no definite internal vascular flow and is indeterminate, correlating with the abnormality seen on mammography. Further evaluation with ultrasound-guided cor e needle biopsy is recommended for tissu e diagnosis. Targeted ultrasound of the lateral left breast at the 3 o'clock position, 2 cm from nipple, demonstrates a cluster of adjacent cysts, measuring 0.9 x 0.6 x 0.3 cm. The cysts demonstrated no internal color flow and are thought to correlate with the mammographic abnormality. The left breast implant is present. IMPRESSION: ACR BI-RADS Category 4: Suspicious. Results given to and discussed with the patient. 1. ??Indeterminate hypoechoic oval circu mscribed mass in the right breast at the 8 o'clock position, 6 cm from nipple, measuring 1.6 x 0.8 x 1.1 cm. 2. ??Indeterminate hypoechoic mass with partially circumscribed and indistinct margins, in the left breast at the 1 o'clock position, 6 cm from nipple, measuring 0.4 x 0.3 x 0.4 cm. 3. ??Right breast ultrasound-guided core needle biopsy and left breast ultrasound-guided core needle biopsy recommended for tissue diagnosis, which we will assist the patient in scheduling. Ina Vencesumleda DO MAMMO US UPPER EXTREMITY SOFT TISSUE RIGHT (05/16/2020 4:04 PM CDT) Anatomical Region Laterality Modality ARM R Ultrasound Specimen (Source) Anatomical Collection Method Collection Time Re ceived Time Location / / Volume Laterality 05/16/2020 4:04 PM CDT Narrative 05/16/2020 5:46 PM CDT EXAM: US UPPER EXTREMITY SOFT TISSUE RIGHT LOCATION: [facility] MEDICAL IMAGING DATE/TIME: 05/16/2020 4:04 PM INDICATION: Arm Mass, Right COMPARISON: None. TECHNIQUE: Routine. FINDINGS: The palpable abnormality corre sponds to a well-circumscribed 2.0 x 1.1 x 1.7 cm heterogeneous hypoechoic mass l ocated within the subcutaneous fat of the posterior superior right arm. There is no deeper extension into the muscles of the arm. IMPRESSION: 1. ??The palpable abnormality correspond s to an indeterminate 2 cm mass within the subcutaneous fat. Recommend biopsy e ither excisional biopsy or percutaneous needle core biopsy. Procedure Note Tony Hebert MD - 05/16/2020For matting of this note might be different from the original. EXAM: US UPPER EXTREMITY SOFT TISSUE RIG HT LOCATION: [facility] MEDICAL IMAGING DATE/TIME: 05/16/2020 4:04 PM INDICATION: Arm Mass, Right COMPARISON: None. TECHNIQUE: Routine. FINDINGS: The palpable abnormality corre sponds to a well-circumscribed 2.0 x 1.1 x 1.7 cm heterogeneous hypoechoic mass l ocated within the subcutaneous fat of the posterior superior right arm. There is no deeper extension into the muscles of the arm. IMPRESSION: 1. The palpable abnormality corresponds to an indeterminate 2 cm mass within the subcutaneous fat. Recommend biopsy e ither excisional biopsy or percutaneous needle core biopsy. Ina Kaye Krummel DO US US PELVIS COMPLETE TA AND TV (05/16/2020 4:04 PM CDT) Anatomical Region Laterality Modality Pelvis Ultrasound Specimen (Source) Anatomical Collection Method Collection Time Re ceived Time Location / / Volume Laterality 05/16/2020 4:04 PM CDT Addenda Addendum by Antony Quiñones MD on 05/17/2020 1:12 PM CDT EXAM: US PELVIS COMPLETE TA AND TV LOCATION: [facility] MEDICAL IMAGING DATE/TIME: 05/16/2020 4:04 PM INDICATION: Menorrhagia with irregular c ycle. COMPARISON: None. TECHNIQUE: Transabdominal scans were per formed. Endovaginal ultrasound was performed to better visualize the adnexa . FINDINGS: UTERUS: 10.9 x 4.9 x 6.4 cm. Intramural fibroid in the posterior mid uterine body on the left 3.4 x 2.7 x 2.7 cm. Thi s does not involve the underlying endometrium. ENDOMETRIUM: 8 mm. There is a suggestion of a 5 mm endometrial polyp in the upper endometrial canal. RIGHT OVARY: 2.4 x 1.3 x 1.8 cm. Normal with flow demonstrated. LEFT OVARY: 2.0 x 1.3 x 1.3 cm. Normal w ith flow demonstrated. No significant free fluid. IMPRESSION: 1. ??Probable small endometrial polyp in the superior portion of the endometrial canal. This could be confirmed with hyst erosonogram. 2. ??Intramural fibroid in the posterior uterine body does not involve the underlying endometrium. 3. ??Remainder negative. Impressions 05/17/2020 8:03 AM CDT 1. ??Probable small endometrial polyp in the superior portion of the endometrial canal. This could be confirmed with hyst erosonogram. 2. ??Intramural fibroid in the posterior uterine body does not involve the underlying endometrium. 3. ??Remainder negative. Narrative 05/17/2020 8:03 AM CDT EXAM: US PELVIS COMPLETE TA AND TV LOCATION: [facility] MEDICAL IMAGING DATE/TIME: 05/16/2020 4:04 PM INDICATION: Menorrhagia with irregular c ycle. COMPARISON: None. TECHNIQUE: Transabdominal scans were per formed. Endovaginal ultrasound was performed to better visualize the adnexa . FINDINGS: UTERUS: 10.9 x 4.9 x 6.4 cm. Intramural fibroid in the posterior mid uterine body on the left 3.4 x 2.7 x 2.7 cm. Thi s does not involve the underlying endometrium. ENDOMETRIUM: 8 mm. There is a suggestion of a 5 mm endometrial polyp in the upper endometrial canal. RIGHT OVARY: 2.4 x 1.3 x 1.8 cm. Normal with flow demonstrated. LEFT OVARY: 2.0 x 1.3 x 1.3 cm. Normal w ith flow demonstrated. No significant free fluid. Procedure Note Tony Hebert MD / Abraham Quiñones dd, MD - 05/17/2020 EXAM: US PELVIS COMPLETE TA AND TV LOCATION: [facility] MEDICAL IMAGING DATE/TIME: 05/16/2020 4:04 PM INDICATION: Menorrhagia with irregular c ycle. COMPARISON: None. TECHNIQUE: Transabdominal scans were per formed. Endovaginal ultrasound was performed to better visualize the adnexa . FINDINGS: UTERUS: 10.9 x 4.9 x 6.4 cm. Intramural fibroid in the posterior mid uterine body on the left 3.4 x 2.7 x 2.7 cm. Thi s does not involve the underlying endometrium. ENDOMETRIUM: 8 mm. There is a suggestion of a 5 mm endometrial polyp in the upper endometrial canal. RIGHT OVARY: 2.4 x 1.3 x 1.8 cm. Normal with flow demonstrated. LEFT OVARY: 2.0 x 1.3 x 1.3 cm. Normal w ith flow demonstrated. No significant free fluid. IMPRESSION: 1. Probable small endometrial polyp in t he superior portion of the endometrial canal. This could be confirmed with hyst erosonogram. 2. Intramural fibroid in the posterior u terine body does not involve the underlying endometrium. 3. Remainder negative. Ina Santana DO US HEMOGLOBIN A1C SCREENING (05/09/2020 4:27 PM CDT) P athologist Signature HEMOGLOBIN A1C 5.2 <=6.4 % 05/10/2020 [facility] SCREENING 1:50 PM CDT LABORATORY-CENT RAL LABORATORY Specimen Anatomical Collection Method / Collection Time Recei alannah Time (Source) Location / Volume Laterality Blood BLOOD SPECIMEN / Venipuncture / 05/09/2020 4:27 2019 4:28 Unknown Unknown PM CDT PM CDT Narrative [facility] LABORATORY-CENTRAL LABORAT ORY - 05/10/2020 1:50 PM CDT ? (<5.7%) ?Normal ? (5.7% to 6.4%) ? Indicates pr ediabetes ? (>=6.5%) ? Confirms diabetes Ina Santana DO CHEMISTRY Performing Organization Address City/State/ZIP Code Phon e Number [facility] [phone] [place] [address] LABORATORY-CENTRAL 2000 LABORATORY (ABNORMAL) LIPID PANEL (05/09/2020 4:27 PM CDT) [facility] Method Time Signature CHOLESTEROL,TOTAL 212 (H) 100 - 199 05/10/2020 [facility] mg/dL 2:39 PM CDT LABORATORY-TASH TRAL LABORATORY TRIGLYCERIDES 110 <150 05/10/2020 [facility] mg/dL 2:39 PM CDT LABORATORY-T[facility] TR[facility] LABORATORY HDL CHOLESTEROL 45 >40 mg/dL 05/10/2020 [facility] 2:39 PM CDT LABORATORY-T[facility] LABORATORY NON-HDL 167 (H) <145 05/10/2020 [facility] CHOLESTEROL mg/dl 2:39 PM CDT LABORATORY-T[facility] TR[facility] LABORATORY CHOL/HDL RATIO 4.71 (H) <4.50 05/10/2020 [facility] 2:39 PM CDT LABORATORY-T[facility] TRAL LABORATORY LDL CHOLESTEROL 145 (H) <=130 05/10/2020 [facility] mg/dL 2:39 PM CDT LABORATORY-TASH TRAL LABORATORY PROVIDER ORDERED RANDOM 05/10/2020 [facility] STATUS 2:39 PM CDT LABORATORY-TASH TRAL LABORATORY Specimen Anatomical Collection Method / Collection Time Recei alannah Time (Source) Location / Volume Laterality Blood BLOOD SPECIMEN / Venipuncture / 05/09/2020 4:27 2019 4:28 Unknown Unknown PM CDT PM CDT Ina Santana DO CHEMISTRY Performing Organization Address City/State/ZIP Code Phon e Number [facility] [phone] [place] [address] LABORATORY-CENTRAL 1999 LABORATORY (ABNORMAL) LIPID PANEL W REFLEX MEASURED LDL (03/01/2019 5:09 PM CDT) Patholo gist Method Time Signature CHOLESTEROL,TOTAL 251 (H) 100 - 199 03/01/2019 [facility] mg/dL 11:43 PM CDT LABORATORY-TASH TRAL LABORATORY TRIGLYCERIDES 76 <150 03/01/2019 [facility] mg/dL 11:43 PM CDT LABORATORY-T[facility] TRAL LABORATORY HDL CHOLESTEROL 63 >40 mg/dL 03/01/2019 [facility] 11:43 PM CDT LABORATORY-T[facility] TRAL LABORATORY NON-HDL 188 (H) <145 03/01/2019 [facility] CHOLESTEROL mg/dl 11:43 PM CDT LABORATORY-TASH TRAL LABORATORY CHOL/HDL RATIO 3.98 <4.50 03/01/2019 [facility] 11:43 PM CDT LABORATORY-T[facility] TRAL LABORATORY LDL CHOLESTEROL 173 (H) <=130 03/01/2019 [facility] mg/dL 11:43 PM CDT LABORATORY-TASH TRAL LABORATORY PROVIDER ORDERED FASTING 03/01/2019 [facility] STATUS 11:43 PM CDT LABORATORY-TASH TRAL LABORATORY Specimen Anatomical Collection Method / Collection Time Recei alannah Time (Source) Location / Volume Laterality Blood BLOOD SPECIMEN / Venipuncture / 03/01/2019 5:09 2018 5:09 Unknown Unknown PM CDT PM CDT Rad Santiago MD CHEMISTRY Performing Organization Address City/State/ZIP Code Phon e Number [facility] [phone] [place] [address] LABORATORY-CENTRAL 2000 LABORATORY GLUCOSE, FASTING (03/01/2019 5:09 PM CDT) P athologist Signature GLUCOSE 70 65 - 100 03/01/2019 [facility] mg/dL 5:17 PM CDT [facility] Specimen Anatomical Collection Method / Collection Time Recei alannah Time (Source) Location / Volume Laterality Blood BLOOD SPECIMEN / Venipuncture / 03/01/2019 5:09 2018 5:09 Unknown Unknown PM CDT PM CDT Rad Santiago MD CHEMISTRY Performing Organization Address City/State/ZIP Code Phon e Number [facility] [phone] [place], [place] [address] [employer] THIN PREP PAP SCREEN IMAGED (03/01/2019 4:55 PM CDT) Component Value Ref Test Analysis Performed At [facility] Method Time Signature Case Report Gynecologic Cytology Report ? Case: [id number] ? 03/12/2019 [facility] Authorizing Provider: ??Rad Shirley MD ?? Collected: ? 03/01/2019 1655 ? 11:17 AM HEALTH Ordering Location: ? [facility] Received: ?03/01/2019 1658 ? CDT LABOR ATORY-C First Screen: ? Arash Albarran ? ENTRAL Specimen: ?[employer] ThinPrep Vial Screening, Cervical ? LABORATORY INTERPRETATION NEGATIVE FOR (none) 03/12/2019 [facility] E lectronically /RESULT INTRAEPITHELIAL 11:17 AM HEALTH sign ed by [facility]ESION OR CDT LABORATORY-C Arash Albarran MALIGNANCY (NIL) ENTRAL on 03/12/2019 at LABORATORY 11:17 AM SPECIMEN Satisfactory for evaluation 03/12/2019 [facility] Endocervical component present 11:17 AM HEALTH Scant cellularity CDT LABORATORY-C ENTRAL LABORATORY HPV REQUEST HPV and PAP 03/12/2019 [facility] 11:17 AM HEALTH CDT LABORATORY-C ENTRAL LABORATORY Date of LMP 02/12/2019 03/12/2019 [facility] 11:17 AM HEALTH CDT LABORATORY-C ENTRAL LABORATORY Last Pap Date 12/27/14 03/12/2019 [facility] 11:17 AM [facility] CDT LABORATORY-C ENTRAL LABORATORY Last Pap NIL 03/12/2019 [facility] Result 11:17 AM HEALTH CDT LABORATORY-C ENTRAL LABORATORY Abnormal Pap No 03/12/2019 [facility] or [place] Bx in 11:17 AM HEALTH last 5 years CDT LABORATORY-C ENTRAL LABORATORY Menstrual Regular Periods 03/12/2019 [facility] Status 11:17 AM HEALTH CDT LABORATORY-C ENTRAL LABORATORY [place] Bx Done No 03/12/2019 [facility] Today 11:17 AM [facility] CDT LABORATORY-C ENTRAL LABORATORY Additional None given 03/12/2019 [facility] Information 11:17 AM [facility] CDT LABORATORY-C ENTRAL LABORATORY Automated Successful 03/12/2019 [facility] Review 11:17 AM [facility] CDT LABORATORY-C ENTRAL LABORATORY Comment: Specimen processed successfully by automated manager company device, [employer] System, [employer] ANCILLARY TESTING HPV Ordered, Please 03/12/2019 1 1:17 [facility] [employer] see separate report CDT LABORATORY -CENTRAL LABORATORY Note The pap test is a screening technique, not a diagnostic procedure. ??It is used primarily to screen for squamous cancers and precursor lesions. ??Published studies have shown that it is subject to both 019 11:17 [facility] false negative and false pos itive results. ??The pap test should not be used as the sole means to diagnose or exclude pre-malignant and malignant lesions. [facility] LABORATORY-CENTRAL LABORATORY Cytology is screened and int erpreted at [facility] - [address], [place] [address] and [facility] - [address]; [place] [address] and [facility] - [address]; [place] [address] and [facility] [address]; [place] [address] Specimen Anatomical Collection Method Collection Time Receive d Time (Source) Location / / Volume Laterality Other (Cervical) Non-Blood / 03/01/2019 4:55 PM 03/01 4:58 Unknown CDT PM CDT Rad Santiago MD PATHOLOGY/CYTOLOGY Performing Organization Address City/State/ZIP Code Phon e Number [facility] [address] [place] [address] LABORATORY-CENTRAL 2000 LABORATORY HPV HIGH RISK (03/01/2019 4:55 PM CDT)Only the most recent of4 resultswithin the time period is included. [facility] HPV RESULTS Negative Negative 03/03/2019 [facility] 2:47 PM CDT LABORATORY-[facility] LABORATORY Comment: HPV types 16, 18, 31, 33, 35, 39, 45, 51 , 52, 56, 58, 59, 66 and 68 DNA were undetectable or below the pre-set threshold. ?? Specimen Anatomical Collection Method Collection Time Receive d Time (Source) Location / / Volume Laterality Other (Cervical) Non-Blood / 03/01/2019 4:55 PM 03/02 9:15 Unknown CDT AM CDT Narrative [facility] - 03/03/2019 2:47 PM CDT Methodology: ??Brionna Arabella 4800 HPV Test Rad Santiago MD MICROBIOLOGY Performing Organization Address City/State/ZIP Code Phon e Number [facility] [address] [place] [address] [place] [address] LABORATORY SCAN-MAMMOGRAPHY REPORT (12/05/2017 12:00 AM CDT) Narrative This result has an attachment that is no t available. Scanner OTHER GESTATIONAL AGE ESTIMATE (07/20/2002 2:05 PM PROPERTY FIELD INSPECTOR)Only the most recent of23 resultswithin the time period is included. [facility] CALCULATED 36.86 wk GESTATIONAL AG Specimen (Source) Anatomical Collection Method Collection Time Re ceived Time Location / / Volume Laterality 07/20/2002 2:05 PM PROPERTY FIELD INSPECTOR Narrative 01/21/2004 1:19 AM CDT Ordered by an unspecified provider. Other Clinical Staff LABORATORY PROTEIN QUALITATIVE,URINE (07/20/2002 2:05 PM PROPERTY FIELD INSPECTOR)Only the most recent of21 resultswithin the time period is included. [facility] PROTEIN, URINE n Specimen (Source) Anatomical Collection Method Collection Time Re ceived Time Location / / Volume Laterality 07/20/2002 2:05 PM PROPERTY FIELD INSPECTOR Narrative 01/21/2004 1:19 AM CDT Ordered by an unspecified provider. Other Clinical Staff URINE GLUCOSE QUALITATIVE,URINE (07/20/2002 2:05 PM PROPERTY FIELD INSPECTOR)Only the most recent of21 resultswithin the time period is included. athologist Signature GLUCOSE, URINE n g/dL Specimen (Source) Anatomical Collection Method Collection Time Re ceived Time Location / / Volume Laterality 07/20/2002 2:05 PM PROPERTY FIELD INSPECTOR Narrative 07/13/2004 6:04 PM PROPERTY FIELD INSPECTOR Ordered by an unspecified provider. Other Clinical Staff URINE VAG RECTAL OB STREP CULT (07/13/2002 3:55 PM PROPERTY FIELD INSPECTOR)Only the most recent of2 resultswithin the time period is included. [facility] Method Time Signature STREP B CULT NO BETA STREP GRP A,B OR G ISOLATED Specimen (Source) Anatomical Collection Method Collection Time Re ceived Time Location / / Volume Laterality 07/13/2002 3:55 PM PROPERTY FIELD INSPECTOR Narrative 01/19/2004 4:08 PM CDT Ordered by an unspecified provider. Other Clinical Staff MICROBIOLOGY HEMOGLOBIN (07/13/2002 1:12 PM PROPERTY FIELD INSPECTOR)Only the most recent of9 resultswithin the time period is included. athologist [facility] HEMOGLOBIN 13.5 g/dL Specimen (Source) Anatomical Collection Method Collection Time Re ceived Time Location / / Volume Laterality 07/13/2002 1:12 PM PROPERTY FIELD INSPECTOR Narrative 01/21/2004 1:19 AM CDT Ordered by an unspecified provider. Other Clinical Staff HEMATOLOGY GLUCOSE, BLOOD 1 HOUR AFTER 50 GM ORAL GLUCOSE (05/18/2002 10:02 AM CDT)Only the most recent of2 resultswithin the time period is included. athologist [facility] GLUCOSE BERNARDO,1HR 62 mg/dL Specimen (Source) Anatomical Collection Method Collection Time Re ceived Time Location / / Volume Laterality 05/18/2002 10:02 AM CDT Narrative 01/21/2004 1:19 AM CDT Ordered by an unspecified provider. Other Clinical Staff LABORATORY TRIPLE MARKER SCREEN FOR DOWN SYNDROME, MATERNAL SERUM (02/23/2002 9:14 AM CDT) Only the most recent of2 resultswithin the time period is included. athologist [facility] AGE DOWN Declined SYNDROME RISK Specimen (Source) Anatomical Collection Method Collection Time Re ceived Time Location / / Volume Laterality 02/23/2002 9:14 AM CDT Narrative 01/21/2004 1:19 AM CDT Ordered by an unspecified provider. Other Clinical Staff LABORATORY NUTRITION EDUCATION (01/14/2002 11:00 AM CDT)Only the most recent of2 results within the time period is included. athologist [facility] NUTRITION ED counseled Specimen (Source) Anatomical Collection Method Collection Time Re ceived Time Location / / Volume Laterality 01/14/2002 11:00 AM CDT Narrative 01/22/2004 7:26 PM CDT Ordered by an unspecified provider. Other Clinical Staff LOGICIAN CONVERSION MEAN PLATELET VOLUME (12/29/2001 10:50 AM CDT)Only the most recent of2 results within the time period is included. [facility] MPV 7.7 7.4 - 10.9 fL Specimen (Source) Anatomical Collection Method Collection Time Re ceived Time Location / / Volume Laterality 12/29/2001 10:50 AM CDT Narrative 01/19/2004 4:08 PM CDT Ordered by an unspecified provider. Other Clinical Staff LABORATORY RBC SIZE DISTRIBUTION (12/29/2001 10:50 AM CDT)Only the most recent of2 results within the time period is included. [facility] RDW 13.0 11.9 - 15.5 % Specimen (Source) Anatomical Collection Method Collection Time Re ceived Time Location / / Volume Laterality 12/29/2001 10:50 AM CDT Narrative 01/19/2004 4:08 PM CDT Ordered by an unspecified provider. Other Clinical Staff LABORATORY MEAN CORPUSCULAR VOLUME, RBC (12/29/2001 10:50 AM CDT)Only the most recent of2 resultswithin the time period is included. athologist [facility] MCV 92 82 - 98 fL Specimen (Source) Anatomical Collection Method Collection Time Re ceived Time Location / / Volume Laterality 12/29/2001 10:50 AM CDT Narrative 01/19/2004 4:08 PM CDT Ordered by an unspecified provider. Other Clinical Staff LABORATORY MEAN CORPUSLE HGB COUNT (12/29/2001 10:50 AM CDT)Only the most recent of2 resultswithin the time period is included. [facility] 31.4 27 - 32 pg Specimen (Source) Anatomical Collection Method Collection Time Re ceived Time Location / / Volume Laterality 12/29/2001 10:50 AM CDT Narrative 01/19/2004 4:08 PM CDT Ordered by an unspecified provider. Other Clinical Staff LABORATORY MEAN CORPUSCULAR HEMOGLOBIN CONCENTRATION, RBC (12/29/2001 10:50 AM CDT)Only the most recent of2 resultswithin the time period is included. [facility] - [facility] Specimen (Source) Anatomical Collection Method Collection Time Re ceived Time Location / / Volume Laterality 12/29/2001 10:50 AM CDT Narrative 01/19/2004 4:08 PM CDT Ordered by an unspecified provider. Other Clinical Staff LABORATORY BASOPHIL COUNT, BLOOD (12/29/2001 10:50 AM CDT)Only the most recent of2 results within the time period is included. [facility] ABSOLUTE 0.1 0.0 - 0.1 BASOPHILS 10*3/mm3 Specimen (Source) Anatomical Collection Method Collection Time Re ceived Time Location / / Volume Laterality 12/29/2001 10:50 AM CDT Narrative 01/19/2004 4:08 PM CDT Ordered by an unspecified provider. Other Clinical Staff LABORATORY EOSINOPHIL COUNT, BLOOD (12/29/2001 10:50 AM CDT)Only the most recent of2 resultswithin the time period is included. [facility] ABSOLUTE 0.5 0.1 - 0.5 EOSINOPHILS 10*3/mm3 Specimen (Source) Anatomical Collection Method Collection Time Re ceived Time Location / / Volume Laterality 12/29/2001 10:50 AM CDT Narrative 01/19/2004 4:08 PM CDT Ordered by an unspecified provider. Other Clinical Staff LABORATORY BASOPHILS PERCENT OF BLOOD LEUKOCYTES (12/29/2001 10:50 AM CDT)Only the most recent of2 resultswithin the time period is included. athologist Signature % BASO 0.8 0 - 3 % Specimen (Source) Anatomical Collection Method Collection Time Re ceived Time Location / / Volume Laterality 12/29/2001 10:50 AM CDT Narrative 01/19/2004 4:08 PM CDT Ordered by an unspecified provider. Other Clinical Staff LABORATORY EOSINOPHILS PERCENT OF BLOOD LEUKOCYTES (12/29/2001 10:50 AM CDT)Only the most recent of2 resultswithin the time period is included. athologist Signature % EOS 5.2 0 - 7 % Specimen (Source) Anatomical Collection Method Collection Time Re ceived Time Location / / Volume Laterality 12/29/2001 10:50 AM CDT Narrative 01/19/2004 4:08 PM CDT Ordered by an unspecified provider. Other Clinical Staff LABORATORY MONOCYTES PERCENT OF BLOOD LEUKOCYTES, MANUAL COUNT (12/29/2001 10:50 AM CDT) Only the most recent of2 resultswithin the time period is included. athologist Signature % MONO 5.8 0 - 11 % Specimen (Source) Anatomical Collection Method Collection Time Re ceived Time Location / / Volume Laterality 12/29/2001 10:50 AM CDT Narrative 01/19/2004 4:08 PM CDT Ordered by an unspecified provider. Other Clinical Staff LABORATORY (ABNORMAL) LYMPHOCYTES PERCENT OF BLOOD LEUKOCYTES, MANUAL COUNT (12/29/2001 10:50 AM CDT)Only the most recent of2 resultswithin the time period is included. athologist Signature % LYMPH 18.8 (A) 25 - 45 % Specimen (Source) Anatomical Collection Method Collection Time Re ceived Time Location / / Volume Laterality 12/29/2001 10:50 AM CDT Narrative 01/19/2004 4:08 PM CDT Ordered by an unspecified provider. Other Clinical Staff LABORATORY SEGMENTED NEUTROPHILS PERCENT OF BLOOD LEUKOCYTES (12/29/2001 10:50 AM CDT) Only the most recent of2 resultswithin the time period is included. athologist Signature % NEUT 69.4 50 - 70 % Specimen (Source) Anatomical Collection Method Collection Time Re ceived Time Location / / Volume Laterality 12/29/2001 10:50 AM CDT Narrative 01/19/2004 4:08 PM CDT Ordered by an unspecified provider. Other Clinical Staff LABORATORY MONOCYTE COUNT, BLOOD, AUTOMATED (12/29/2001 10:50 AM CDT)Only the most recent of2 resultswithin the time period is included. Analysis Performed At Patho logist Time Signature ABSOLUTE 0.5 0.3 - 0.9 MONOCYTES THOU/CU MM 10*3/uL Specimen (Source) Anatomical Collection Method Collection Time Re ceived Time Location / / Volume Laterality 12/29/2001 10:50 AM CDT Narrative 01/19/2004 4:08 PM CDT Ordered by an unspecified provider. Other Clinical Staff LABORATORY LYMPHOCYTE COUNT, BLOOD (12/29/2001 10:50 AM CDT)Only the most recent of2 resultswithin the time period is included. athologist Signature ABSOLUTE 1.7 0.9 - 2.9 LYMPHOCYTES 10*3/mm3 Specimen (Source) Anatomical Collection Method Collection Time Re ceived Time Location / / Volume Laterality 12/29/2001 10:50 AM CDT Narrative 01/19/2004 4:08 PM CDT Ordered by an unspecified provider. Other Clinical Staff LABORATORY NEUTROPHIL COUNT, BLOOD, MANUAL (12/29/2001 10:50 AM CDT)Only the most recent of 2 resultswithin the time period is included. athologist Signature ABSOLUTE 6.3 1.7 - 7.0 NEUTROPHILS 10*3/mm3 Specimen (Source) Anatomical Collection Method Collection Time Re ceived Time Location / / Volume Laterality 12/29/2001 10:50 AM CDT Narrative 01/19/2004 4:08 PM CDT Ordered by an unspecified provider. Other Clinical Staff LABORATORY HBSAG (12/29/2001 10:50 AM CDT)Only the most recent of2 resultswithin the time period is included. P athologist Signature HBSAG NON-REACTIV NON - REACT E Specimen (Source) Anatomical Collection Method Collection Time Re ceived Time Location / / Volume Laterality 12/29/2001 10:50 AM CDT Narrative 01/19/2004 4:08 PM CDT Ordered by an unspecified provider. Other Clinical Staff SEND OUTS PLATELET COUNT (12/29/2001 10:50 AM CDT)Only the most recent of2 resultswithin the time period is included. athologist Signature PLATELET COUNT 309 140 - 440 10*3/mm3 Specimen (Source) Anatomical Collection Method Collection Time Re ceived Time Location / / Volume Laterality 12/29/2001 10:50 AM CDT Narrative 01/19/2004 4:08 PM CDT Ordered by an unspecified provider. Other Clinical Staff HEMATOLOGY WHITE BLOOD COUNT (12/29/2001 10:50 AM CDT)Only the most recent of2 results within the time period is included. athologist Signature WHITE BLOOD 9.1 4.5 - 11.0 COUNT 10*3/mm3 Specimen (Source) Anatomical Collection Method Collection Time Re ceived Time Location / / Volume Laterality 12/29/2001 10:50 AM CDT Narrative 01/19/2004 4:08 PM CDT Ordered by an unspecified provider. Other Clinical Staff HEMATOLOGY HEMATOCRIT (12/29/2001 10:50 AM CDT)Only the most recent of2 resultswithin the time period is included. athologist Signature HEMATOCRIT 39.6 34.9 - 44.5 % Specimen (Source) Anatomical Collection Method Collection Time Re ceived Time Location / / Volume Laterality 12/29/2001 10:50 AM CDT Narrative 01/19/2004 4:08 PM CDT Ordered by an unspecified provider. Other Clinical Staff HEMATOLOGY RED BLOOD COUNT (12/29/2001 10:50 AM CDT)Only the most recent of2 resultswithin the time period is included. athologist Signature RED BLOOD COUNT 4.32 3.90 - 5.03 10*6/mm3 Specimen (Source) Anatomical Collection Method Collection Time Re ceived Time Location / / Volume Laterality 12/29/2001 10:50 AM CDT Narrative 01/19/2004 4:08 PM CDT Ordered by an unspecified provider. Other Clinical Staff HEMATOLOGY LEUKOCYTE ESTERASE, URINE, BY DIPSTICK (09/01/2000 7:24 AM PROPERTY FIELD INSPECTOR)Only the most recent of11 resultswithin the time period is included. P athologist Signature LEUKOCYTE neg. ESTERASE Specimen (Source) Anatomical Collection Method Collection Time Re ceived Time Location / / Volume Laterality 09/01/2000 7:24 AM PROPERTY FIELD INSPECTOR Narrative 01/21/2004 1:19 AM CDT Ordered by an unspecified provider. Other Clinical Staff LABORATORY Visit Diagnoses Diagnosis Start Date Mucous polyp of cervix 03/05/2006 Routine general medical examination at [facility] 03/01/2019 Routine general medical examination at [facility] Screening for colon cancer 03/01/2019 Special screening for malignant neoplasms, colon Lipid screening 03/01/2019 Screening for lipoid disorders Hypothyroidism, unspecified type 03/01/2019 Diabetes mellitus screening 03/01/2019 Screening for diabetes mellitus Cervical cancer screening 03/01/2019 Screening for malignant neoplasm of the cervix Sebaceous cyst 03/01/2019 Hypothyroidism, unspecified type 06/01/2019 Hypothyroidism, unspecified type 06/02/2019 Hypothyroidism, unspecified type 06/02/2019 Mild persistent asthma without complicat ion 06/28/2019 Unspecified asthma Screening for colon cancer 07/05/2019 Special screening for malignant neoplasms, colon Mild persistent asthma without complicat ion 10/17/2019 Unspecified asthma Mild persistent asthma without complicat ion 10/25/2019 Unspecified asthma Encounters for unspecified administrative purpose 11/29 Anxiety disorder, unspecified type 12/03/2019 Anxiety disorder, unspecified type 12/17/2019 Mild persistent asthma without complicat ion 03/21/2020 Unspecified asthma Hypothyroidism, unspecified type 04/27/2020 Hypothyroidism, unspecified type 05/09/2020 Breast cancer screening by mammogram 05/09/2020 Need for influenza vaccination 05/09/2020 Need for prophylactic vaccination and inoculation agai nst influenza Routine general medical examination at [facility] 05/09/2020 Insomnia, idiopathic 05/09/2020 Persistent disorder of initiating or maintaining sleep Screening for diabetes mellitus 05/09/2020 Screening for lipid disorders 05/09/2020 Menorrhagia with irregular cycle 05/09/2020 Excessive or frequent menstruation Arm mass, right 05/09/2020 Mental health problem 05/09/2020 Unspecified mental or behavioral problem Menorrhagia with irregular cycle 05/16/2020 Excessive or frequent menstruation Arm mass, right 05/16/2020 PMS (premenstrual syndrome) 06/02/2020 Premenstrual tension syndromes Abnormal uterine bleeding 06/02/2020 Unspecified disorder of menstruation and other abnorma l bleeding from female genital tract Endometrial polyp 06/02/2020 Polyp of corpus uteri Intramural uterine fibroid 06/02/2020 Arm mass, right 06/13/2020 Breast cancer screening by mammogram 06/19/2020 Abnormal mammogram 06/30/2020 Abnormal mammogram, unspecified Abnormal mammogram 07/13/2020 Abnormal mammogram, unspecified Mild persistent asthma without complicat ion 07/17/2020 Unspecified asthma Mild persistent asthma without complicat ion 08/10/2020 Unspecified asthma Screening for colon cancer 08/10/2020 Special screening for malignant neoplasms, colon Need for shingles vaccine 08/10/2020 Need for prophylactic vaccination and inoculation agai nst other viral diseases Sinus congestion 08/10/2020 Other diseases of nasal cavity and sinuses Screening for colon cancer 08/11/2020 Special screening for malignant neoplasms, colon Positive fecal occult blood test 08/16/2020 Nonspecific abnormal finding in stool contents Mild persistent asthma without complicat ion 01/01/2021 Unspecified asthma Mild persistent asthma without complicat ion 01/30/2021 Unspecified asthma Mild persistent asthma without complicat ion 02/09/2021 Unspecified asthma Breast mass, right 02/12/2021 Lump or mass in breast Breast mass, right 02/21/2021 Lump or mass in breast Petechiae 04/05/2021 Spontaneous ecchymoses Hypothyroidism, unspecified type 05/29/2021 Need for COVID-19 vaccine 07/12/2021 Need for prophylactic vaccination and inoculation agai nst influenza 07/12/2021 Hypothyroidism, unspecified type 08/30/2021 Eye redness 08/30/2021 Redness or discharge of eye Mild persistent asthma without complicat ion 08/30/2021 Unspecified asthma Routine general medical examination at [facility] 08/30/2021 Routine general medical examination at a health care acility Acquired hypothyroidism 08/30/2021 Unspecified hypothyroidism Hypothyroidism, unspecified type 09/13/2021 Mild persistent asthma without complicat ion 09/18/2021 Unspecified asthma Visit for screening mammogram 10/04/2021 Other screening mammogram Mild persistent asthma without complicat ion 01/01/2022 Unspecified asthma Medication management 01/15/2022 Encounter for other specified aftercare Urinary frequency 04/22/2022 Bacterial UTI 04/22/2022 Urinary tract infection, site not specified Urinary tract infection with hematuria, site unspecifi ed 05/07/2022 Mass of right thigh 05/07/2022 Mass of right thigh 05/08/2022 Acute cystitis without hematuria 05/08/2022 Acute cystitis Encounter for other general counseling or advice on co ntraception 05/08/2022 Need for influenza vaccination 05/08/2022 Need for prophylactic vaccination and inoculation agai nst influenza Need for COVID-19 vaccine 05/08/2022 Need for vaccination for Strep pneumonia e 05/08/2022 Need for prophylactic vaccination against streptococcu s pneumoniae (pneumococcus) Tetanus-diphtheria (Td) vaccination 05/08/2022 Need for prophylactic vaccination with tetanus-diphthe boris (Td) Encounter for IUD insertion 05/22/2022 Encounter for insertion of intrauterine contraceptive device Encounter for IUD insertion 05/29/2022 Encounter for insertion of intrauterine contraceptive device Care Teams Garbage Man Relationship Specialty Start Date End Date Rad Santiago MD PCP - General Family Practice 05/22/[address] [place] [address] [address]
--- NOTE | 2022-06-06 21:22 | ED.NURSE ---
Called in Rx for Kevimal to [facility] [address], [place].
== END 2022-06-06 20:24 | disposition home or self-care (01) ==
PROVIDERS: Emergency Provider Emergency Medicine Emergency Medical Services
DX: N39.0 Urinary tract infection, site not specified (principal)
CPT/HCPCS: 81001; 87086; 99283; 99284; A9270